=== PATIENT | female | born 1960 | race Caucasian/White ===

== ENCOUNTER 2019-08-25 20:25 | Emergency (ER) | payer MEDICARE, MEDICAID ==
[~2019-08-25] VITALS: Ht 162.6 cm; Wt 59.0 kg
[2019-08-25 21:44] LABS: Basophils # (auto) 0.2 uL; Basophils % (auto) 1.4 % (0.0-2.0); Eosinophils # (auto) 0.2 uL; Eosinophils % (auto) 1.1 % (0.0-7.0); Hematocrit 44.3 % (36.0-46.0); Hemoglobin 14.4 g/dL (12.2-16.2); Lymphocytes # (auto) 1.5 uL; Lymphocytes % (auto) 10.6 % (10.0-50.0); Mean Corpuscular Hemoglobin 32.1 pg (28.0-32.0); Mean Corpuscular Hgb Conc. 32.6 g/dL (32.0-36.0); Mean Corpuscular Volume 98.5 fL (80.0-100.0); Monocytes # (auto) 1.3 uL; Monocytes % (auto) 9.5 % (0.0-12.0); Neutrophils # (auto) 10.7 uL; Neutrophils % (auto) 77.4 % (37.0-80.0); Platelet Count (auto) 283 10^3/uL (140-450); Red Cell Distribution Width 16.8 % (11.8-14.3); White Blood Cell 13.8 10^3/uL (4.4-10.8)
[2019-08-25 21:59] LABS: Albumin 2.7 g/dL (3.4-5.0); Anion Gap 8 (5-15); BUN/Creatinine Ratio 15.4; Blood Alcohol < 3.0 mg/dL (0-5); Blood Urea Nitrogen 14 mg/dL (7-18); Calcium 8.7 mg/dL (8.5-10.1); Carbon Dioxide 28 mmol/L (21-32); Chloride 107 mmol/L (98-107); GFR African American 81 mL/min; GFR Non-African American 67 mL/min; Glucose 108 mg/dL (74-106); Magnesium 2.6 mg/dL (1.6-2.6); Potassium 4.3 mmol/L (3.5-5.1); Sodium 143 mmol/L (136-145)
[2019-08-25 22:05] LABS: Alanine Aminotransferase 30 U/L (13-56); Alkaline Phosphatase 106 U/L (45-117); Aspartate Aminotransferase 69 U/L (15-37); Bilirubin, Total 0.2 mg/dL (0.2-1.0); Total Protein 6.8 g/dL (6.4-8.2)
[2019-08-25 22:30] LABS: Urine Amorphous Crystal MOD /hpf (None Seen); Urine Bacteria NONE SEEN /hpf (None Seen); Urine Blood 1+ /uL (Negative); Urine Hyaline Cast MANY /lpf (0 - 2); Urine Mucus FEW (None Seen); Urine Specific Gravity 1.017 (1.001-1.035); Urine WBC 6 /hpf (0 - 5)
[2019-08-25] MEDS ORDERED: LORazepam 2MG/ML-1ML VIAL ONE (22:35)
[2019-08-25] MEDS ORDERED: LORazepam 2MG/ML-1ML VIAL IV ONE (22:45)
[2019-08-25] MEDS ORDERED: MIDAZOLAM DRIP 50 mg/50mL 50 ML IV SCH (23:41)
[2019-08-25] MEDS ORDERED: SUCCINYLCHOLINE CHLORIDE 20 MG/ML 10ML VIAL IV ONE (23:45)
[2019-08-25] MEDS ORDERED: ETOMIDATE (2MG/ML) 20ML VIAL IV ONE (23:45)
[2019-08-25] MEDS ORDERED: MIDAZOLAM DRIP 50 mg/50mL 50 ML IV ONE (23:52)
[2019-08-26] MEDS ORDERED: cefTRIAXone 1GM/50ML D5W 50 ML IV ONE (00:30)
[2019-08-26] MEDS ORDERED: NOREPINEPHRINE 8 MG/250ML KIT 250 ML IV ONE (00:56)
[2019-08-26] MEDS ORDERED: NOREPINEPHRINE 8 MG/250ML KIT 250 ML IV SCH (01:00)
[2019-08-26 01:03] VITALS: BP 113/45
== END 2019-08-26 01:10 | disposition short-term general hospital (02) ==
LOC: EDBD 20:25 → ER 20:35
DX: S34.139A Unspecified injury to sacral spinal cord, initial encounter (principal); R41.82 Altered mental status, unspecified; F32.9 Major depressive disorder, single episode, unspecified; Z88.6 Allergy status to analgesic agent; X58.XXXA Exposure to other specified factors, initial encounter; Y93.89 Activity, other specified; Y92.89 Other specified places as the place of occurrence of the external cause; Y99.8 Other external cause status
CPT/HCPCS: 31500; 36415; 36600; 70450; 71045; 72125; 80053; 80320; 81001; 82805; 82962; 83605; 83735; 84484; 85025; 93005; 96365; 96375; 99285; J0330; J0696; J2060; J2250; J7030; 94002

== ENCOUNTER 2021-07-11 11:38 | Inpatient (IN) | payer MEDICARE, MEDICAID ==
[~2021-07-11] VITALS: Ht 165.1 cm; Wt 50.2 kg
[2021-07-11] MEDS ORDERED: LORazepam 2MG/ML-1ML VIAL IV ONE (12:15)
[2021-07-11 12:36] LABS: Basophils # (auto) 0 10 ^3/uL (0-0.2); Basophils % (auto) 0.5 % (0.0-2.0); Eosinophils # (auto) 0 10 ^3/uL (0-0.8); Hematocrit 40.7 % (36.0-46.0); Hemoglobin 13.1 g/dL (12.2-16.2); Lymphocytes # (auto) 1.5 10 ^3/uL (0.4-5.4); Mean Corpuscular Hgb Conc. 32.3 g/dL (32.0-36.0); Mean Corpuscular Volume 99.1 fL (80.0-100.0); Monocytes # (auto) 0.3 10 ^3/uL (0-1.3); Monocytes % (auto) 6.3 % (0.0-12.0); Neutrophils # (auto) 3.4 10 ^3/uL (1.6-8.6); Neutrophils % (auto) 64.2 % (37.0-80.0); Nucleated Red Blood Cells % 0.3 %; Red Cell Distribution Width 18.9 % (11.8-14.3); White Blood Cell 5.3 10^3/uL (4.4-10.8)
[2021-07-11 12:49] LABS: Magnesium 3.4 mg/dL (1.6-2.6)
[2021-07-11 12:54] LABS: BUN/Creatinine Ratio 33.1; Bilirubin, Total 0.2 mg/dL (0.2-1.0); Total Protein 6.9 g/dL (6.4-8.2)
[2021-07-11] MEDS ORDERED: D5W/SOD CHL 0.45% 1,000 ML IV SCH (15:45)
[2021-07-11] MEDS ORDERED: HYDROcodone-ACET 5/325MG TAB PO PRN (15:45)
[2021-07-11] MEDS ORDERED: NITROGLYCERIN 0.4 MG SL TAB SL PRN (15:45)
[2021-07-11] MEDS ORDERED: DOCUSATE SOD 100 MG CAP PO PRN (15:45)
[2021-07-11] MEDS ORDERED: VANCOMYCIN PER PHARMACY 1,000 MG IV SCH (16:00)
[2021-07-11] MEDS: HEPARIN SODIUM (PORCINE) 5000 UNITS/ML 1ML VIAL SC SCH (16:00)
[2021-07-11] MEDS ORDERED: SODIUM CHLORIDE 0.9% 1,200 ML IV ONE (16:00)
[2021-07-11] MEDS: NOREPINEPHRINE 8 MG/250ML KIT 250 ML IV SCH (16:08)
[2021-07-11] MEDS: ASCORBIC ACID 1,000 MG TAB PO SCH (16:25)
[2021-07-11] MEDS: CHOLECALCIFEROL (VITD3) 2,000 UNIT CAP/TAB PO SCH (16:26)
[2021-07-11] MEDS: ZINC SULFATE 220mg CAP or TAB PO SCH (16:26)
[2021-07-11] MEDS: DexAMETHasone SOD PHOS 10MG/1ML VIAL INJ IV SCH (16:27)
[2021-07-11] MEDS ORDERED: ALBUTEROL SULF HFA 90MCG INH 200DOSE IN PRN (16:30)
[2021-07-11] MEDS ORDERED: SODIUM CHLORIDE 0.9% 100 ML IV ONE (16:30)
[2021-07-11] MEDS ORDERED: VANCOMYCIN 750mg/250ml 250 ML IV ONE (17:00)
[2021-07-11] MEDS: ACCU-CHEK COMFORT CURVE STRIP VI SCH ×2 (17:00→22:17)
[2021-07-11] MEDS: InsuLIN REG 1unit/0.01ml Soln (100units/ml) SC SCH ×2 (17:00→22:19)
[2021-07-11 17:10] LABS: Urine Bacteria NONE SEEN /hpf (None Seen); Urine Blood TRACE /uL (Negative); Urine Hyaline Cast FEW /lpf (0 - 2); Urine Mucus FEW (None Seen); Urine WBC 5 /hpf (0 - 5)
[2021-07-11] MEDS ORDERED: DEXTROSE 50% SYRINGE 50 ML IV ONE (17:34)
[2021-07-11] MEDS: D5W/SOD CHLO 0.9% 1,000 ML IV SCH (17:59)
[2021-07-11] MEDS ORDERED: PIPERACILLIN-TAZOB 3.375GM 100 ML IV SCH (18:00)
[2021-07-11] MEDS: DEXTROSE (50%) 50ML SYRG IV PRN (18:02)
[2021-07-11] MEDS ORDERED: DEXTROSE (50%) 50ML SYRG IV ONE (18:15)
[2021-07-11 21:49] VITALS: BP 77/36
[2021-07-11] MEDS: BUDESONIDE (INHALATION) 0.5 MG/2 ML NEB NEB SCH (21:50)
[2021-07-11] MEDS: PIPERACILLIN-TAZOB 3.375GM 100 ML IV SCH (21:59)
[2021-07-11] MEDS ORDERED: BUDESONIDE (INHALATION) 180 MCG IH IN SCH (22:00)
[2021-07-12] MEDS: HEPARIN SODIUM (PORCINE) 5000 UNITS/ML 1ML VIAL SC SCH ×3 (01:21→18:46)
[2021-07-12] MEDS: D5W/SOD CHLO 0.9% 1,000 ML IV SCH ×2 (03:45→16:41)
[2021-07-12] MEDS: PIPERACILLIN-TAZOB 3.375GM 100 ML IV SCH ×4 (05:39→21:17)
[2021-07-12 07:18] LABS: Basophils # (auto) 0 10 ^3/uL (0-0.2); Basophils % (auto) 0.1 % (0.0-2.0); Eosinophils # (auto) 0 10 ^3/uL (0-0.8); Hematocrit 42.1 % (36.0-46.0); Hemoglobin 13.3 g/dL (12.2-16.2); Lymphocytes # (auto) 1.1 10 ^3/uL (0.4-5.4); Lymphocytes % (auto) 9.9 % (10.0-50.0); Mean Corpuscular Hemoglobin 31.5 pg (28.0-32.0); Mean Corpuscular Hgb Conc. 31.6 g/dL (32.0-36.0); Mean Corpuscular Volume 99.5 fL (80.0-100.0); Monocytes # (auto) 0.5 10 ^3/uL (0-1.3); Monocytes % (auto) 4.4 % (0.0-12.0); Neutrophils # (auto) 9.7 10 ^3/uL (1.6-8.6); Neutrophils % (auto) 85.6 % (37.0-80.0); Nucleated Red Blood Cells % 0.1 %; Red Blood Cells 4.23 10^6/uL (4.0-5.20); Red Cell Distribution Width 19.2 % (11.8-14.3); White Blood Cell 11.4 10^3/uL (4.4-10.8)
[2021-07-12 07:23] LABS: Calcium 7.3 mg/dL (8.5-10.1); Potassium 4.8 mmol/L (3.5-5.1)
[2021-07-12 07:27] LABS: BUN/Creatinine Ratio 29.1; Bilirubin, Total 0.2 mg/dL (0.2-1.0); Total Protein 5.9 g/dL (6.4-8.2)
[2021-07-12] MEDS: InsuLIN REG 1unit/0.01ml Soln (100units/ml) SC SCH ×4 (09:20→22:58)
[2021-07-12] MEDS: ACCU-CHEK COMFORT CURVE STRIP VI SCH ×4 (09:20→22:58)
[2021-07-12] MEDS: BUDESONIDE (INHALATION) 0.5 MG/2 ML NEB NEB SCH ×2 (10:00→19:24)
[2021-07-12] MEDS: ZINC SULFATE 220mg CAP or TAB PO SCH (10:00)
[2021-07-12] MEDS: CHOLECALCIFEROL (VITD3) 2,000 UNIT CAP/TAB PO SCH (10:00)
[2021-07-12] MEDS: ASCORBIC ACID 1,000 MG TAB PO SCH (10:00)
[2021-07-12] MEDS: DexAMETHasone SOD PHOS 10MG/1ML VIAL INJ IV SCH (11:47)
[2021-07-12] MEDS: VANCOMYCIN 750mg/250ml 250 ML IV SCH (13:22)
[2021-07-12] MEDS: NOREPINEPHRINE 8 MG/250ML KIT 250 ML IV SCH (14:50)
[2021-07-12] MEDS ORDERED: HALOPERIDOL LACTATE 5 MG/ML INJ VIAL IM ONE (16:45)
[2021-07-12] MEDS: SOD CHL 0.45% 1,000 ML IV SCH (17:54)
[2021-07-12] MEDS: ALBUTEROL SULF 2.5 MG/0.5ML(0.5%) NEB SOLN NEB PRN (19:24)
[2021-07-12] MEDS: DOPamine 1600MCG/ML D5W 250 ML IV SCH (19:40)
[2021-07-12] MEDS: QUEtiapine FUMARATE 25 MG TAB PO SCH (23:17)
[2021-07-12] MEDS: FAMOTIDINE (10MG/ML) 2ML VL IV SCH (23:17)
[2021-07-13] MEDS: PIPERACILLIN-TAZOB 3.375GM 100 ML IV SCH ×6 (03:36→23:20)
[2021-07-13] MEDS: BUDESONIDE (INHALATION) 0.5 MG/2 ML NEB NEB SCH ×2 (06:53→22:39)
[2021-07-13] MEDS: SOD CHL 0.45% 1,000 ML IV SCH ×2 (07:04→19:50)
[2021-07-13] MEDS: VANCOMYCIN 750mg/250ml 250 ML IV SCH ×2 (07:19→08:37)
[2021-07-13] MEDS: ACCU-CHEK COMFORT CURVE STRIP VI SCH ×4 (08:33→22:00)
[2021-07-13] MEDS: InsuLIN REG 1unit/0.01ml Soln (100units/ml) SC SCH ×4 (08:34→22:00)
[2021-07-13] MEDS: HEPARIN SODIUM (PORCINE) 5000 UNITS/ML 1ML VIAL SC SCH ×3 (08:53→17:22)
[2021-07-13 10:18] LABS: Calcium 7.8 mg/dL (8.5-10.1); Potassium 4.4 mmol/L (3.5-5.1)
[2021-07-13 10:23] LABS: Bilirubin, Total 0.3 mg/dL (0.2-1.0); Total Protein 6.1 g/dL (6.4-8.2)
[2021-07-13 10:31] LABS: Basophils # (auto) 0 10 ^3/uL (0-0.2); Basophils % (auto) 0.1 % (0.0-2.0); Eosinophils # (auto) 0 10 ^3/uL (0-0.8); Hematocrit 40.5 % (36.0-46.0); Hemoglobin 12.9 g/dL (12.2-16.2); Lymphocytes % (auto) 9.1 % (10.0-50.0); Mean Corpuscular Hgb Conc. 31.9 g/dL (32.0-36.0); Mean Corpuscular Volume 97.1 fL (80.0-100.0); Monocytes # (auto) 0.6 10 ^3/uL (0-1.3); Monocytes % (auto) 5.1 % (0.0-12.0); Neutrophils # (auto) 9.9 10 ^3/uL (1.6-8.6); Neutrophils % (auto) 85.7 % (37.0-80.0); Red Blood Cells 4.17 10^6/uL (4.0-5.20); Red Cell Distribution Width 18.6 % (11.8-14.3); White Blood Cell 11.5 10^3/uL (4.4-10.8)
[2021-07-13] MEDS: FAMOTIDINE (10MG/ML) 2ML VL IV SCH ×2 (10:34→22:00)
[2021-07-13] MEDS: ASCORBIC ACID 1,000 MG TAB PO SCH (10:34)
[2021-07-13] MEDS: CHOLECALCIFEROL (VITD3) 2,000 UNIT CAP/TAB PO SCH (10:34)
[2021-07-13] MEDS: QUEtiapine FUMARATE 25 MG TAB PO SCH ×2 (10:34→22:00)
[2021-07-13] MEDS: ZINC SULFATE 220mg CAP or TAB PO SCH (10:34)
[2021-07-13] MEDS: DexAMETHasone SOD PHOS 10MG/1ML VIAL INJ IV SCH (10:35)
[2021-07-13] MEDS: NOREPINEPHRINE 8 MG/250ML KIT 250 ML IV SCH (15:45)
[2021-07-13] MEDS: DOBUTamine 1000MCG/ML 250 ML IV SCH (19:53)
[2021-07-13] MEDS: ALBUTEROL SULF 2.5 MG/0.5ML(0.5%) NEB SOLN NEB PRN (22:39)
[2021-07-14] MEDS: DOPamine 1600MCG/ML D5W 250 ML IV SCH ×2 (00:19→19:17)
[2021-07-14] MEDS ORDERED: HEPARIN SODIUM (PORCINE) 5000 UNITS/ML 1ML VIAL ONE (00:30)
[2021-07-14] MEDS: VANCOMYCIN 750mg/250ml 250 ML IV SCH (00:30)
[2021-07-14] MEDS: HEPARIN SODIUM (PORCINE) 5000 UNITS/ML 1ML VIAL SC SCH ×3 (00:35→16:00)
[2021-07-14] MEDS: PIPERACILLIN-TAZOB 3.375GM 100 ML IV SCH ×2 (05:12→09:30)
[2021-07-14] MEDS: BUDESONIDE (INHALATION) 0.5 MG/2 ML NEB NEB SCH ×2 (06:19→18:52)
[2021-07-14] MEDS: ALBUTEROL SULF 2.5 MG/0.5ML(0.5%) NEB SOLN NEB PRN ×2 (06:19→18:52)
[2021-07-14] MEDS: InsuLIN REG 1unit/0.01ml Soln (100units/ml) SC SCH ×3 (06:55→22:35)
[2021-07-14] MEDS: ACCU-CHEK COMFORT CURVE STRIP VI SCH ×4 (06:55→22:35)
[2021-07-14 07:34] LABS: Basophils # (auto) 0 10 ^3/uL (0-0.2); Basophils % (auto) 0.2 % (0.0-2.0); Eosinophils # (auto) 0 10 ^3/uL (0-0.8); Hematocrit 36.8 % (36.0-46.0); Hemoglobin 12.5 g/dL (12.2-16.2); Lymphocytes # (auto) 0.5 10 ^3/uL (0.4-5.4); Lymphocytes % (auto) 5.8 % (10.0-50.0); Mean Corpuscular Hemoglobin 32.6 pg (28.0-32.0); Mean Corpuscular Hgb Conc. 33.9 g/dL (32.0-36.0); Mean Corpuscular Volume 96.1 fL (80.0-100.0); Monocytes # (auto) 0.3 10 ^3/uL (0-1.3); Monocytes % (auto) 3.8 % (0.0-12.0); Neutrophils # (auto) 7.5 10 ^3/uL (1.6-8.6); Neutrophils % (auto) 90.2 % (37.0-80.0); Nucleated Red Blood Cells % 0.1 %; Red Blood Cells 3.83 10^6/uL (4.0-5.20); Red Cell Distribution Width 17.7 % (11.8-14.3); White Blood Cell 8.3 10^3/uL (4.4-10.8)
[2021-07-14 07:47] LABS: Potassium 3.4 mmol/L (3.5-5.1)
[2021-07-14 07:59] LABS: Albumin 1.9 g/dL (3.4-5.0); Bilirubin, Total 0.3 mg/dL (0.2-1.0); Calcium 7.9 mg/dL (8.5-10.1); Total Protein 6.7 g/dL (6.4-8.2)
[2021-07-14] MEDS: SOD CHL 0.45% 1,000 ML IV SCH (09:04)
[2021-07-14] MEDS: ZINC SULFATE 220mg CAP or TAB PO SCH (09:30)
[2021-07-14] MEDS: DexAMETHasone SOD PHOS 10MG/1ML VIAL INJ IV SCH (09:30)
[2021-07-14] MEDS: FAMOTIDINE (10MG/ML) 2ML VL IV SCH ×2 (09:30→10:20)
[2021-07-14] MEDS: ASCORBIC ACID 1,000 MG TAB PO SCH (09:30)
[2021-07-14] MEDS: CHOLECALCIFEROL (VITD3) 2,000 UNIT CAP/TAB PO SCH (09:30)
[2021-07-14] MEDS: QUEtiapine FUMARATE 25 MG TAB PO SCH ×2 (09:30→22:30)
[2021-07-14] MEDS ORDERED: LEVO175T66 PO (11:45)
[2021-07-14] MEDS ORDERED: RISP0.5T45 PO (11:45)
[2021-07-14] MEDS ORDERED: IBUP600T27 PO (11:45)
[2021-07-14] MEDS ORDERED: DONE1TAB88 PO (11:45)
[2021-07-14] MEDS ORDERED: ATOR40TA52 PO (11:45)
[2021-07-14] MEDS ORDERED: QUET50TA27 PO (11:45)
[2021-07-14] MEDS ORDERED: FLUC150T38 PO (11:45)
[2021-07-14] MEDS ORDERED: TRAM50TA2 PO (11:45)
[2021-07-14] MEDS ORDERED: VANCOMYCIN 750mg/250ml 250 ML IV SCH (12:00)
[2021-07-14] MEDS ORDERED: VANCOMYCIN 500 MG in D5W 5% 100 ML IV SCH (12:00)
[2021-07-14 14:01] VITALS: BP 98/68
[2021-07-14] MEDS ORDERED: POTASSIUM EFFERVESENT TAB 25 MEQ PO ONE (14:15)
[2021-07-14] MEDS: MORPHINE SULFATE INJECTION 2 MG/ML SYRG IV PRN (14:36)
[2021-07-14] MEDS: ONDANSETRON HCL 4 MG/2 ML VIAL IV PRN (14:39)
[2021-07-14] MEDS: NOREPINEPHRINE 8 MG/250ML KIT 250 ML IV SCH (15:45)
[2021-07-14] MEDS: DOBUTamine 1000MCG/ML 250 ML IV SCH (15:50)
[2021-07-14] MEDS ORDERED: POTASSIUM EFFERVESENT TAB 25 MEQ GT ONE (17:00)
[2021-07-14] MEDS: FREE WATER GT SCH ×2 (18:00→22:00)
[2021-07-14] MEDS: ENSURE CLEAR Mixed Berry 8oz Carton GT SCH (22:00)
[2021-07-15] MEDS: MORPHINE SULFATE INJECTION 2 MG/ML SYRG IV PRN ×2 (00:15→17:51)
[2021-07-15] MEDS: FREE WATER GT SCH ×6 (02:00→23:31)
[2021-07-15] MEDS: ENSURE CLEAR Mixed Berry 8oz Carton GT SCH (06:00)
[2021-07-15] MEDS: BUDESONIDE (INHALATION) 0.5 MG/2 ML NEB NEB SCH ×2 (06:39→18:41)
[2021-07-15] MEDS: ALBUTEROL SULF 2.5 MG/0.5ML(0.5%) NEB SOLN NEB PRN ×2 (06:39→18:41)
[2021-07-15 06:59] LABS: Basophils # (auto) 0 10 ^3/uL (0-0.2); Eosinophils # (auto) 0 10 ^3/uL (0-0.8); Hematocrit 38.7 % (36.0-46.0); Hemoglobin 12.8 g/dL (12.2-16.2); Lymphocytes # (auto) 0.6 10 ^3/uL (0.4-5.4); Lymphocytes % (auto) 9.7 % (10.0-50.0); Mean Corpuscular Hemoglobin 31.7 pg (28.0-32.0); Mean Corpuscular Hgb Conc. 33.1 g/dL (32.0-36.0); Mean Corpuscular Volume 95.7 fL (80.0-100.0); Monocytes # (auto) 0.2 10 ^3/uL (0-1.3); Neutrophils % (auto) 86.3 % (37.0-80.0); Nucleated Red Blood Cells % 0.1 %; Red Blood Cells 4.04 10^6/uL (4.0-5.20); Red Cell Distribution Width 18.3 % (11.8-14.3); White Blood Cell 5.8 10^3/uL (4.4-10.8)
[2021-07-15 07:12] LABS: Potassium 4.3 mmol/L (3.5-5.1)
[2021-07-15 07:20] LABS: Albumin 1.9 g/dL (3.4-5.0); Bilirubin, Total 0.3 mg/dL (0.2-1.0); Calcium 7.7 mg/dL (8.5-10.1); Total Protein 6.1 g/dL (6.4-8.2)
[2021-07-15] MEDS: ACCU-CHEK COMFORT CURVE STRIP VI SCH ×4 (07:54→23:15)
[2021-07-15] MEDS: HEPARIN SODIUM (PORCINE) 5000 UNITS/ML 1ML VIAL SC SCH ×2 (08:00)
[2021-07-15] MEDS: DEXTROSE (50%) 50ML SYRG IV PRN ×2 (08:08→13:48)
[2021-07-15] MEDS: DexAMETHasone SOD PHOS 10MG/1ML VIAL INJ IV SCH (11:07)
[2021-07-15] MEDS: FAMOTIDINE (10MG/ML) 2ML VL IV SCH (11:08)
[2021-07-15] MEDS: QUEtiapine FUMARATE 25 MG TAB PO SCH ×2 (11:08→23:31)
[2021-07-15] MEDS: ZINC SULFATE 220mg CAP or TAB PO SCH (11:08)
[2021-07-15] MEDS: CHOLECALCIFEROL (VITD3) 2,000 UNIT CAP/TAB PO SCH (11:08)
[2021-07-15] MEDS: ASCORBIC ACID 1,000 MG TAB PO SCH (11:08)
[2021-07-15] MEDS: DOBUTamine 1000MCG/ML 250 ML IV SCH (12:05)
[2021-07-15] MEDS: NOREPINEPHRINE 8 MG/250ML KIT 250 ML IV SCH (14:02)
[2021-07-15] MEDS ORDERED: REMDESIVIR PER PHARMACY 0 ML IV SCH ×2 (15:15)
[2021-07-15] MEDS ORDERED: REMDESIVIR 200 MG in NS 210ml LOADING DOSE ADULT IV ONE (16:30)
[2021-07-15] MEDS: ALBUMIN 25% 50 ML IV SCH ×2 (17:05→23:32)
[2021-07-15] MEDS: ACETAMINOPHEN 325 MG TAB PO PRN (17:52)
[2021-07-15] MEDS: DOPamine 1600MCG/ML D5W 250 ML IV SCH (19:15)
[2021-07-15] MEDS: InsuLIN REG 1unit/0.01ml Soln (100units/ml) SC SCH (22:00)
[2021-07-16] MEDS: FREE WATER GT SCH ×6 (02:00→21:13)
[2021-07-16] MEDS: MORPHINE SULFATE INJECTION 2 MG/ML SYRG IV PRN (02:40)
[2021-07-16] MEDS: ONDANSETRON HCL 4 MG/2 ML VIAL IV PRN (02:41)
[2021-07-16] MEDS: ACCU-CHEK COMFORT CURVE STRIP VI SCH ×4 (07:08→22:40)
[2021-07-16] MEDS: BUDESONIDE (INHALATION) 0.5 MG/2 ML NEB NEB SCH ×2 (07:09→18:49)
[2021-07-16] MEDS: ALBUMIN 25% 50 ML IV SCH (07:10)
[2021-07-16] MEDS: DOBUTamine 1000MCG/ML 250 ML IV SCH ×2 (10:00→23:20)
[2021-07-16] MEDS: FAMOTIDINE (10MG/ML) 2ML VL IV SCH (10:17)
[2021-07-16] MEDS: ZINC SULFATE 220mg CAP or TAB PO SCH (10:17)
[2021-07-16] MEDS: CHOLECALCIFEROL (VITD3) 2,000 UNIT CAP/TAB PO SCH (10:17)
[2021-07-16] MEDS: ASCORBIC ACID 1,000 MG TAB PO SCH (10:17)
[2021-07-16] MEDS: DexAMETHasone SOD PHOS 10MG/1ML VIAL INJ IV SCH (10:17)
[2021-07-16] MEDS: QUEtiapine FUMARATE 25 MG TAB PO SCH ×2 (10:17→21:13)
[2021-07-16] MEDS: NOREPINEPHRINE 8 MG/250ML KIT 250 ML IV SCH (10:39)
[2021-07-16] MEDS: DEXTROSE (50%) 50ML SYRG IV PRN (13:07)
[2021-07-16 13:29] LABS: Calcium 7.9 mg/dL (8.5-10.1); Potassium 4.6 mmol/L (3.5-5.1)
[2021-07-16 13:32] LABS: Basophils # (auto) 0 10 ^3/uL (0-0.2); Eosinophils # (auto) 0 10 ^3/uL (0-0.8); Hematocrit 40.4 % (36.0-46.0); Hemoglobin 13.2 g/dL (12.2-16.2); Lymphocytes # (auto) 0.2 10 ^3/uL (0.4-5.4); Lymphocytes % (auto) 2.5 % (10.0-50.0); Mean Corpuscular Hemoglobin 31.7 pg (28.0-32.0); Mean Corpuscular Hgb Conc. 32.8 g/dL (32.0-36.0); Mean Corpuscular Volume 96.6 fL (80.0-100.0); Monocytes # (auto) 0.7 10 ^3/uL (0-1.3); Monocytes % (auto) 6.6 % (0.0-12.0); Neutrophils % (auto) 90.9 % (37.0-80.0); Red Blood Cells 4.18 10^6/uL (4.0-5.20); Red Cell Distribution Width 18.3 % (11.8-14.3); White Blood Cell 9.9 10^3/uL (4.4-10.8)
[2021-07-16 13:33] LABS: BUN/Creatinine Ratio 21.7; Bilirubin, Total 0.3 mg/dL (0.2-1.0); Total Protein 6.1 g/dL (6.4-8.2)
[2021-07-16] MEDS: REMDESIVIR 100mg 100 MG in SODIUM CHL 0.9% 230 ML IV SCH (15:00)
[2021-07-16 18:09] VITALS: BP 107/51
[2021-07-16] MEDS: ALBUTEROL SULF 2.5 MG/0.5ML(0.5%) NEB SOLN NEB PRN (18:49)
[2021-07-16] MEDS: DOPamine 1600MCG/ML D5W 250 ML IV SCH (20:04)
[2021-07-16] MEDS: LORazepam 0.5 MG TAB PO PRN (21:14)
[2021-07-16] MEDS: InsuLIN REG 1unit/0.01ml Soln (100units/ml) SC SCH (22:40)
[2021-07-17] MEDS: FREE WATER GT SCH ×6 (00:36→22:20)
[2021-07-17] MEDS ORDERED: NOREPINEPHRINE 8 MG/250ML KIT 250 ML IV ONE (01:16)
[2021-07-17] MEDS: ACCU-CHEK COMFORT CURVE STRIP VI SCH ×4 (05:59→22:19)
[2021-07-17] MEDS: ALBUTEROL SULF 2.5 MG/0.5ML(0.5%) NEB SOLN NEB PRN ×2 (06:54→18:36)
[2021-07-17] MEDS: BUDESONIDE (INHALATION) 0.5 MG/2 ML NEB NEB SCH ×2 (06:55→18:36)
[2021-07-17] MEDS: FAMOTIDINE (10MG/ML) 2ML VL IV SCH (10:00)
[2021-07-17] MEDS: CHOLECALCIFEROL (VITD3) 2,000 UNIT CAP/TAB PO SCH (10:00)
[2021-07-17] MEDS: ZINC SULFATE 220mg CAP or TAB PO SCH (10:00)
[2021-07-17] MEDS: QUEtiapine FUMARATE 25 MG TAB PO SCH ×2 (10:00→22:24)
[2021-07-17] MEDS: ASCORBIC ACID 1,000 MG TAB PO SCH (10:00)
[2021-07-17] MEDS: DexAMETHasone SOD PHOS 10MG/1ML VIAL INJ IV SCH (10:00)
[2021-07-17] MEDS: ACETAMINOPHEN 325 MG TAB PO PRN (11:16)
[2021-07-17 11:43] LABS: Albumin 1.8 g/dL (3.4-5.0); Potassium 3.7 mmol/L (3.5-5.1)
[2021-07-17 11:47] LABS: BUN/Creatinine Ratio 33.3; Bilirubin, Total 0.2 mg/dL (0.2-1.0); Lactic Acid w/Reflex 2.5 mmol/L (0.4-2.0)
[2021-07-17 13:11] LABS: Basophils # (auto) 0 10 ^3/uL (0-0.2); Basophils % (auto) 0.2 % (0.0-2.0); Eosinophils # (auto) 0 10 ^3/uL (0-0.8); Hematocrit 38.2 % (36.0-46.0); Hemoglobin 12.2 g/dL (12.2-16.2); Lymphocytes # (auto) 0.5 10 ^3/uL (0.4-5.4); Lymphocytes % (auto) 6.6 % (10.0-50.0); Mean Corpuscular Hemoglobin 30.6 pg (28.0-32.0); Mean Corpuscular Hgb Conc. 31.8 g/dL (32.0-36.0); Mean Corpuscular Volume 96.3 fL (80.0-100.0); Monocytes # (auto) 0.3 10 ^3/uL (0-1.3); Monocytes % (auto) 3.1 % (0.0-12.0); Neutrophils # (auto) 7.5 10 ^3/uL (1.6-8.6); Neutrophils % (auto) 90.1 % (37.0-80.0); Red Blood Cells 3.97 10^6/uL (4.0-5.20); White Blood Cell 8.3 10^3/uL (4.4-10.8)
[2021-07-17 13:28] LABS: INR 1.14 (0.9-1.15)
[2021-07-17] MEDS: REMDESIVIR 100mg 100 MG in SODIUM CHL 0.9% 230 ML IV SCH (15:15)
[2021-07-17] MEDS: NOREPINEPHRINE 8 MG/250ML KIT 250 ML IV SCH (15:45)
[2021-07-17] MEDS: LORazepam 0.5 MG TAB PO PRN (17:52)
[2021-07-17] MEDS ORDERED: LIDOCAINE 1% (LOCAL ANESTH.) PF 5ml SDV ID ONE (18:00)
[2021-07-17] MEDS: DOPamine 1600MCG/ML D5W 250 ML IV SCH (19:15)
[2021-07-17] MEDS: InsuLIN REG 1unit/0.01ml Soln (100units/ml) SC SCH (22:00)
[2021-07-17] MEDS: SODIUM CHLOR 0.9% PF (SALINE LOCK) 10ML VIAL/SYR IV SCH (22:24)
[2021-07-18] MEDS: DOBUTamine 1000MCG/ML 250 ML IV SCH ×2 (01:47→21:45)
[2021-07-18] MEDS: FREE WATER GT SCH ×3 (02:15→10:00)
[2021-07-18] MEDS: MORPHINE SULFATE INJECTION 2 MG/ML SYRG IV PRN ×2 (03:14→10:00)
[2021-07-18] MEDS ORDERED: ALBUTEROL SULF 2.5 MG/0.5ML(0.5%) NEB SOLN ONE (06:02)
[2021-07-18] MEDS ORDERED: BUDESONIDE (INHALATION) 0.5 MG/2 ML NEB ONE (06:02)
[2021-07-18] MEDS: BUDESONIDE (INHALATION) 0.5 MG/2 ML NEB NEB SCH ×2 (06:04→18:53)
[2021-07-18] MEDS: ALBUTEROL SULF 2.5 MG/0.5ML(0.5%) NEB SOLN NEB PRN ×2 (06:05→18:53)
[2021-07-18 06:22] LABS: Albumin 1.6 g/dL (3.4-5.0); BUN/Creatinine Ratio 45.7; Calcium 7.4 mg/dL (8.5-10.1); Potassium 3.8 mmol/L (3.5-5.1)
[2021-07-18 06:28] LABS: Bilirubin, Total 0.2 mg/dL (0.2-1.0)
[2021-07-18] MEDS: ACCU-CHEK COMFORT CURVE STRIP VI SCH ×4 (07:20→22:47)
[2021-07-18] MEDS: QUEtiapine FUMARATE 25 MG TAB PO SCH (10:00)
[2021-07-18] MEDS: ONDANSETRON HCL 4 MG/2 ML VIAL IV PRN (10:00)
[2021-07-18] MEDS: ASCORBIC ACID 1,000 MG TAB PO SCH (10:00)
[2021-07-18] MEDS: FAMOTIDINE (10MG/ML) 2ML VL IV SCH (10:00)
[2021-07-18] MEDS: DexAMETHasone SOD PHOS 10MG/1ML VIAL INJ IV SCH (10:00)
[2021-07-18] MEDS: SODIUM CHLOR 0.9% PF (SALINE LOCK) 10ML VIAL/SYR IV SCH ×2 (10:00→22:47)
[2021-07-18] MEDS: ZINC SULFATE 220mg CAP or TAB PO SCH (10:00)
[2021-07-18] MEDS: CHOLECALCIFEROL (VITD3) 2,000 UNIT CAP/TAB PO SCH (10:00)
[2021-07-18] MEDS ORDERED: LACTULOSE 20Gm/30ML SOLN PO ONE (13:30)
[2021-07-18] MEDS: METOCLOPRAMIDE HCL 5MG/ml INJ 2ml VIAL IV SCH ×2 (14:00→22:00)
[2021-07-18] MEDS: D5W 5% 1,000 ML IV SCH ×2 (14:55→19:04)
[2021-07-18] MEDS: REMDESIVIR 100mg 100 MG in SODIUM CHL 0.9% 230 ML IV SCH (15:00)
[2021-07-18] MEDS: NOREPINEPHRINE 8 MG/250ML KIT 250 ML IV SCH ×2 (15:45→19:43)
[2021-07-18] MEDS: DOPamine 1600MCG/ML D5W 250 ML IV SCH (19:15)
[2021-07-18] MEDS ORDERED: NOREPINEPHRINE 8 MG/250ML KIT 250 ML IV ONE (19:33)
[2021-07-18] MEDS: InsuLIN REG 1unit/0.01ml Soln (100units/ml) SC SCH (22:00)
[2021-07-18] MEDS: LORazepam 0.5 MG TAB PO PRN (23:16)
[2021-07-19] MEDS ORDERED: ALBUTEROL SULF HFA 90MCG INH 200DOSE IN PRN (05:30)
[2021-07-19] MEDS: ACCU-CHEK COMFORT CURVE STRIP VI SCH ×5 (07:45→22:33)
[2021-07-19 08:59] LABS: Albumin 1.6 g/dL (3.4-5.0)
[2021-07-19 09:02] LABS: BUN/Creatinine Ratio 39.2; Bilirubin, Total 0.3 mg/dL (0.2-1.0); Total Protein 5.7 g/dL (6.4-8.2)
[2021-07-19] MEDS: METOCLOPRAMIDE HCL 5MG/ml INJ 2ml VIAL IV SCH ×3 (09:07→22:00)
[2021-07-19] MEDS: LACTULOSE 20Gm/30ML SOLN PO SCH (10:00)
[2021-07-19] MEDS: CHOLECALCIFEROL (VITD3) 2,000 UNIT CAP/TAB PO SCH (10:00)
[2021-07-19] MEDS: SODIUM CHLOR 0.9% PF (SALINE LOCK) 10ML VIAL/SYR IV SCH ×2 (10:00→22:31)
[2021-07-19] MEDS: ASCORBIC ACID 1,000 MG TAB PO SCH (10:00)
[2021-07-19] MEDS: DexAMETHasone SOD PHOS 10MG/1ML VIAL INJ IV SCH (10:00)
[2021-07-19] MEDS ORDERED: BUDESONIDE (INHALATION) 180 MCG IH IN SCH (10:00)
[2021-07-19] MEDS: ZINC SULFATE 220mg CAP or TAB PO SCH (10:00)
[2021-07-19] MEDS: FAMOTIDINE (10MG/ML) 2ML VL IV SCH (10:00)
[2021-07-19] MEDS: Jevity 1.2 Cal/Fiber 1 Liter GT SCH (10:04)
[2021-07-19 14:07] VITALS: BP 100/55
[2021-07-19] MEDS: REMDESIVIR 100mg 100 MG in SODIUM CHL 0.9% 230 ML IV SCH (15:02)
[2021-07-19] MEDS: MORPHINE SULFATE INJECTION 2 MG/ML SYRG IV PRN (17:51)
[2021-07-19] MEDS: ONDANSETRON HCL 4 MG/2 ML VIAL IV PRN (17:51)
[2021-07-19] MEDS: DOBUTamine 1000MCG/ML 250 ML IV SCH (18:10)
[2021-07-19] MEDS: BUDESONIDE (INHALATION) 0.5 MG/2 ML NEB NEB SCH (18:45)
[2021-07-19] MEDS: ALBUTEROL SULF 2.5 MG/0.5ML(0.5%) NEB SOLN NEB PRN (18:45)
[2021-07-19] MEDS: D5W 5% 1,000 ML IV SCH (18:55)
[2021-07-19] MEDS: DOPamine 1600MCG/ML D5W 250 ML IV SCH (20:32)
[2021-07-19] MEDS: InsuLIN REG 1unit/0.01ml Soln (100units/ml) SC SCH (22:00)
[2021-07-20] MEDS: MORPHINE SULFATE INJECTION 2 MG/ML SYRG IV PRN ×4 (02:36→22:00)
[2021-07-20] MEDS: ALBUTEROL SULF 2.5 MG/0.5ML(0.5%) NEB SOLN NEB PRN ×2 (06:20→18:10)
[2021-07-20] MEDS: BUDESONIDE (INHALATION) 0.5 MG/2 ML NEB NEB SCH ×2 (06:20→18:10)
[2021-07-20] MEDS: METOCLOPRAMIDE HCL 5MG/ml INJ 2ml VIAL IV SCH ×3 (06:44→22:20)
[2021-07-20] MEDS: ACCU-CHEK COMFORT CURVE STRIP VI SCH ×4 (06:45→22:20)
[2021-07-20] MEDS: DOPamine 1600MCG/ML D5W 250 ML IV SCH (07:15)
[2021-07-20] MEDS: ASCORBIC ACID 1,000 MG TAB PO SCH (10:18)
[2021-07-20] MEDS: LACTULOSE 20Gm/30ML SOLN PO SCH (10:19)
[2021-07-20] MEDS: CHOLECALCIFEROL (VITD3) 2,000 UNIT CAP/TAB PO SCH (10:19)
[2021-07-20] MEDS: DexAMETHasone SOD PHOS 10MG/1ML VIAL INJ IV SCH (10:19)
[2021-07-20] MEDS: FAMOTIDINE (10MG/ML) 2ML VL IV SCH (10:19)
[2021-07-20] MEDS: ZINC SULFATE 220mg CAP or TAB PO SCH (10:19)
[2021-07-20] MEDS: SODIUM CHLOR 0.9% PF (SALINE LOCK) 10ML VIAL/SYR IV SCH ×2 (10:20→22:20)
[2021-07-20] MEDS: DOBUTamine 1000MCG/ML 250 ML IV SCH (14:35)
[2021-07-20] MEDS: D5W 5% 1,000 ML IV SCH (17:08)
[2021-07-20] MEDS: NOREPINEPHRINE 8 MG/250ML KIT 250 ML IV SCH (17:13)
[2021-07-20] MEDS: InsuLIN REG 1unit/0.01ml Soln (100units/ml) SC SCH (22:50)
[2021-07-21] MEDS: MORPHINE SULFATE INJECTION 2 MG/ML SYRG IV PRN ×3 (04:45→23:48)
[2021-07-21] MEDS: METOCLOPRAMIDE HCL 5MG/ml INJ 2ml VIAL IV SCH ×3 (06:20→22:55)
[2021-07-21] MEDS: ACCU-CHEK COMFORT CURVE STRIP VI SCH ×4 (06:22→22:52)
[2021-07-21] MEDS: BUDESONIDE (INHALATION) 0.5 MG/2 ML NEB NEB SCH ×2 (09:56→22:50)
[2021-07-21] MEDS: ALBUTEROL SULF 2.5 MG/0.5ML(0.5%) NEB SOLN NEB PRN (09:56)
[2021-07-21] MEDS: FAMOTIDINE (10MG/ML) 2ML VL IV SCH (10:30)
[2021-07-21] MEDS: SODIUM CHLOR 0.9% PF (SALINE LOCK) 10ML VIAL/SYR IV SCH ×2 (10:30→22:54)
[2021-07-21] MEDS: DexAMETHasone SOD PHOS 10MG/1ML VIAL INJ IV SCH (10:30)
[2021-07-21] MEDS: ASCORBIC ACID 1,000 MG TAB PO SCH (10:30)
[2021-07-21] MEDS: ZINC SULFATE 220mg CAP or TAB PO SCH (10:30)
[2021-07-21] MEDS: CHOLECALCIFEROL (VITD3) 2,000 UNIT CAP/TAB PO SCH (10:30)
[2021-07-21] MEDS: Jevity 1.2 Cal/Fiber 1 Liter GT SCH (11:58)
[2021-07-21 14:46] LABS: Albumin 1.5 g/dL (3.4-5.0); Calcium 6.8 mg/dL (8.5-10.1); Potassium 3.8 mmol/L (3.5-5.1)
[2021-07-21 14:48] LABS: BUN/Creatinine Ratio 27.3
[2021-07-21 14:51] LABS: Bilirubin, Total 0.8 mg/dL (0.2-1.0); Total Protein 4.8 g/dL (6.4-8.2)
[2021-07-21] MEDS: DOBUTamine 1000MCG/ML 250 ML IV SCH (15:00)
[2021-07-21 16:54] LABS: Basophils # (auto) 0 10 ^3/uL (0-0.2); Basophils % (auto) 0.1 % (0.0-2.0); Eosinophils # (auto) 0 10 ^3/uL (0-0.8); Eosinophils % (auto) 0.1 % (0.0-7.0); Hematocrit 31.6 % (36.0-46.0); Hemoglobin 10.3 g/dL (12.2-16.2); Lymphocytes # (auto) 0.4 10 ^3/uL (0.4-5.4); Lymphocytes % (auto) 3.6 % (10.0-50.0); Mean Corpuscular Hgb Conc. 32.6 g/dL (32.0-36.0); Monocytes # (auto) 0.4 10 ^3/uL (0-1.3); Monocytes % (auto) 3.1 % (0.0-12.0); Neutrophils # (auto) 10.9 10 ^3/uL (1.6-8.6); Neutrophils % (auto) 93.1 % (37.0-80.0); Nucleated Red Blood Cells % 0.1 %; Red Blood Cells 3.33 10^6/uL (4.0-5.20); Red Cell Distribution Width 17.6 % (11.8-14.3); White Blood Cell 11.8 10^3/uL (4.4-10.8)
[2021-07-21] MEDS: NOREPINEPHRINE 8 MG/250ML KIT 250 ML IV SCH (19:15)
[2021-07-21] MEDS: DOPamine 1600MCG/ML D5W 250 ML IV SCH (19:15)
[2021-07-21] MEDS: D5W 5% 1,000 ML IV SCH (22:45)
[2021-07-21] MEDS: InsuLIN REG 1unit/0.01ml Soln (100units/ml) SC SCH (22:54)
[2021-07-21] MEDS: ONDANSETRON HCL 4 MG/2 ML VIAL IV PRN (23:49)
[2021-07-22] VITALS (16 sets, daily range): BP systolic 116–145; BP diastolic 45–57
[2021-07-22] MEDS: ONDANSETRON HCL 4 MG/2 ML VIAL IV PRN (05:30)
[2021-07-22] MEDS: MORPHINE SULFATE INJECTION 2 MG/ML SYRG IV PRN ×3 (05:30→15:59)
[2021-07-22] MEDS ORDERED: BUDESONIDE (INHALATION) 0.5 MG/2 ML NEB ONE (06:21)
[2021-07-22] MEDS: METOCLOPRAMIDE HCL 5MG/ml INJ 2ml VIAL IV SCH ×3 (06:31→22:16)
[2021-07-22] MEDS: ACETAMINOPHEN 325 MG TAB PO PRN (07:02)
[2021-07-22] MEDS ORDERED: ACETAMINOPHEN 650 mg PER 20.3 mL UD ONE (07:25)
[2021-07-22] MEDS: DOBUTamine 1000MCG/ML 250 ML IV SCH (07:25)
[2021-07-22] MEDS: ACCU-CHEK COMFORT CURVE STRIP VI SCH ×2 (07:37→11:45)
[2021-07-22] MEDS: BUDESONIDE (INHALATION) 0.5 MG/2 ML NEB NEB SCH ×2 (09:13→22:00)
[2021-07-22] MEDS: ALBUTEROL SULF 2.5 MG/0.5ML(0.5%) NEB SOLN NEB PRN (09:13)
[2021-07-22] MEDS: DexAMETHasone SOD PHOS 10MG/1ML VIAL INJ IV SCH (09:57)
[2021-07-22] MEDS: CHOLECALCIFEROL (VITD3) 2,000 UNIT CAP/TAB PO SCH (09:57)
[2021-07-22] MEDS: ASCORBIC ACID 1,000 MG TAB PO SCH (09:57)
[2021-07-22] MEDS: FAMOTIDINE (10MG/ML) 2ML VL IV SCH (09:57)
[2021-07-22] MEDS: ZINC SULFATE 220mg CAP or TAB PO SCH (09:57)
[2021-07-22] MEDS: SODIUM CHLOR 0.9% PF (SALINE LOCK) 10ML VIAL/SYR IV SCH ×2 (09:59→22:16)
[2021-07-22] MEDS: NOREPINEPHRINE 8 MG/250ML KIT 250 ML IV SCH ×2 (12:45→21:19)
[2021-07-22 13:37] LABS: Basophils # (auto) 0 10 ^3/uL (0-0.2); Basophils % (auto) 0.1 % (0.0-2.0); Eosinophils # (auto) 0 10 ^3/uL (0-0.8); Eosinophils % (auto) 0.2 % (0.0-7.0); Hematocrit 36.5 % (36.0-46.0); Hemoglobin 11.8 g/dL (12.2-16.2); Lymphocytes # (auto) 0.3 10 ^3/uL (0.4-5.4); Lymphocytes % (auto) 2.6 % (10.0-50.0); Mean Corpuscular Hemoglobin 30.9 pg (28.0-32.0); Mean Corpuscular Hgb Conc. 32.3 g/dL (32.0-36.0); Mean Corpuscular Volume 95.6 fL (80.0-100.0); Monocytes # (auto) 0.5 10 ^3/uL (0-1.3); Monocytes % (auto) 5.1 % (0.0-12.0); Red Blood Cells 3.82 10^6/uL (4.0-5.20); Red Cell Distribution Width 17.3 % (11.8-14.3); White Blood Cell 9.8 10^3/uL (4.4-10.8)
[2021-07-22 13:45] LABS: Albumin 1.7 g/dL (3.4-5.0); Calcium 7.3 mg/dL (8.5-10.1)
[2021-07-22] MEDS ORDERED: TPN PER PHARMACY 0 ML IV SCH ×2 (13:45)
[2021-07-22 13:49] LABS: BUN/Creatinine Ratio 27.9; Bilirubin, Total 0.3 mg/dL (0.2-1.0); Total Protein 5.2 g/dL (6.4-8.2)
[2021-07-22 14:47] LABS: Magnesium 2.2 mg/dL (1.6-2.6)
[2021-07-22 14:50] LABS: Pre Albumin 8.7 mg/dL (20.0-40.0)
[2021-07-22] MEDS ORDERED: DEXTROSE (50%) 50ML SYRG IV SCH (18:00)
[2021-07-22] MEDS ORDERED: DOPamine 1600MCG/ML D5W 250 ML IV ONE (19:18)
[2021-07-22] MEDS ORDERED: MORPHINE SULFATE INJECTION 2 MG/ML SYRG ONE (19:18)
[2021-07-22] MEDS ORDERED: NOREPINEPHRINE 8 MG/250ML KIT 250 ML IV ONE (19:19)
[2021-07-22] MEDS ORDERED: AMINO ACID INFUSION IN D10W 1,000 ML IV NR (20:00)
[2021-07-22] MEDS: D5W 5% 1,000 ML IV SCH (20:38)
[2021-07-22] MEDS: DOPamine 1600MCG/ML D5W 250 ML IV SCH (20:40)
[2021-07-23] VITALS (96 sets, daily range): BP systolic 68–182; BP diastolic 21–102
[2021-07-23] MEDS: MORPHINE SULFATE INJECTION 2 MG/ML SYRG IV PRN (00:11)
[2021-07-23] MEDS: ONDANSETRON HCL 4 MG/2 ML VIAL IV PRN ×2 (00:12→03:50)
[2021-07-23] MEDS: ACCU-CHEK COMFORT CURVE STRIP VI SCH ×4 (00:27→17:45)
[2021-07-23] MEDS: InsuLIN REG 1unit/0.01ml Soln (100units/ml) SC SCH ×4 (00:29→17:45)
[2021-07-23] MEDS: DOBUTamine 1000MCG/ML 250 ML IV SCH (03:50)
[2021-07-23] MEDS ORDERED: ROCURONIUM 10MG/ML 10ML VIAL IV ONE (04:22)
[2021-07-23] MEDS ORDERED: ETOMIDATE (2MG/ML) 20ML VIAL IV ONE ×2 (04:22→04:45)
[2021-07-23] MEDS ORDERED: SUCCINYLCHOLINE CHLORIDE 20 MG/ML 10ML VIAL IV ONE ×2 (04:22→04:45)
[2021-07-23] MEDS ORDERED: MIDAZOLAM DRIP 50 mg/50mL 50 ML IV ONE (04:32)
[2021-07-23] MEDS: MIDAZOLAM DRIP 50 mg/50mL 50 ML IV SCH ×2 (04:45→06:57)
[2021-07-23] MEDS: ALBUTEROL SULF 2.5 MG/0.5ML(0.5%) NEB SOLN NEB PRN ×2 (06:11→22:32)
[2021-07-23] MEDS: BUDESONIDE (INHALATION) 0.5 MG/2 ML NEB NEB SCH ×2 (06:11→22:32)
[2021-07-23] MEDS ORDERED: VASOPRESSIN 20 UNIT/ML ONE (06:27)
[2021-07-23] MEDS: VASOPRESSIN 50 UNITS in D5W 5% 247.5 ML IV SCH (06:51)
[2021-07-23] MEDS: METOCLOPRAMIDE HCL 5MG/ml INJ 2ml VIAL IV SCH ×3 (06:54→21:54)
[2021-07-23 10:00] LABS: Albumin 1.2 g/dL (3.4-5.0); Calcium 6.7 mg/dL (8.5-10.1); Magnesium 2.5 mg/dL (1.6-2.6); Potassium 3.4 mmol/L (3.5-5.1)
[2021-07-23 10:06] LABS: BUN/Creatinine Ratio 34.7; Bilirubin, Total 0.3 mg/dL (0.2-1.0); Phosphorus 1.5 mg/dL (2.5-4.90); Total Protein 4.1 g/dL (6.4-8.2)
[2021-07-23] MEDS: FAMOTIDINE (10MG/ML) 2ML VL IV SCH (10:26)
[2021-07-23] MEDS: DexAMETHasone SOD PHOS 10MG/1ML VIAL INJ IV SCH (10:26)
[2021-07-23] MEDS: CHOLECALCIFEROL (VITD3) 2,000 UNIT CAP/TAB PO SCH (10:27)
[2021-07-23] MEDS: ZINC SULFATE 220mg CAP or TAB PO SCH (10:27)
[2021-07-23] MEDS: ASCORBIC ACID 1,000 MG TAB PO SCH (10:27)
[2021-07-23] MEDS ORDERED: POTASSIUM PHOSPHATE 44 MEQ in D5W 5% 250 ML IV ONE (10:30)
[2021-07-23] MEDS: SODIUM CHLOR 0.9% PF (SALINE LOCK) 10ML VIAL/SYR IV SCH ×2 (10:30→21:54)
[2021-07-23] MEDS: PANTOPRAZOLE 40 MG/10 ML VIAL INJ IV SCH ×2 (12:00→21:54)
[2021-07-23] MEDS: NOREPINEPHRINE 8 MG/250ML KIT 250 ML IV SCH (16:55)
[2021-07-23] MEDS: DOPamine 1600MCG/ML D5W 250 ML IV SCH (19:30)
[2021-07-23] MEDS ORDERED: TPN PER PHARMACY IV NR ×9 (20:00)
[2021-07-24] VITALS (94 sets, daily range): BP systolic 100–156; BP diastolic 44–65
[2021-07-24] MEDS: ACCU-CHEK COMFORT CURVE STRIP VI SCH ×5 (00:11→23:40)
[2021-07-24] MEDS: InsuLIN REG 1unit/0.01ml Soln (100units/ml) SC SCH ×5 (00:12→23:40)
[2021-07-24] MEDS: DOBUTamine 1000MCG/ML 250 ML IV SCH ×2 (00:15→19:36)
[2021-07-24] MEDS: NOREPINEPHRINE 8 MG/250ML KIT 250 ML IV SCH ×2 (00:34→10:46)
[2021-07-24 04:53] LABS: Albumin 1.1 g/dL (3.4-5.0); Calcium 6.2 mg/dL (8.5-10.1); Potassium 3.8 mmol/L (3.5-5.1)
[2021-07-24 04:59] LABS: BUN/Creatinine Ratio 35.7; Bilirubin, Total 0.2 mg/dL (0.2-1.0); Magnesium 1.4 mg/dL (1.6-2.6); Phosphorus 1.8 mg/dL (2.5-4.90)
[2021-07-24 05:54] LABS: Basophils # (auto) 0 10 ^3/uL (0-0.2); Eosinophils # (auto) 0 10 ^3/uL (0-0.8); Hematocrit 26.2 % (36.0-46.0); Mean Corpuscular Volume 95.8 fL (80.0-100.0); Neutrophils # (auto) 12.9 10 ^3/uL (1.6-8.6); Nucleated Red Blood Cells % 0.1 %; White Blood Cell 14.1 10^3/uL (4.4-10.8)
[2021-07-24 05:56] LABS: Basophils % (auto) 0.2 % (0.0-2.0); Eosinophils % (auto) 0.1 % (0.0-7.0); Hemoglobin 8.5 g/dL (12.2-16.2); Lymphocytes # (auto) 0.6 10 ^3/uL (0.4-5.4); Lymphocytes % (auto) 4.4 % (10.0-50.0); Mean Corpuscular Hemoglobin 31.1 pg (28.0-32.0); Mean Corpuscular Hgb Conc. 32.5 g/dL (32.0-36.0); Monocytes # (auto) 0.6 10 ^3/uL (0-1.3); Monocytes % (auto) 4.2 % (0.0-12.0); Neutrophils % (auto) 91.1 % (37.0-80.0); Red Blood Cells 2.74 10^6/uL (4.0-5.20); Red Cell Distribution Width 17.1 % (11.8-14.3)
[2021-07-24] MEDS: METOCLOPRAMIDE HCL 5MG/ml INJ 2ml VIAL IV SCH ×3 (06:19→20:14)
[2021-07-24] MEDS ORDERED: SODIUM PHOSP 40 MEQ in D5W 5% 250 ML IV ONE (08:45)
[2021-07-24] MEDS: MAGNESIUM SULFATE 1GM/100ML 100 ML IV SCH ×2 (09:14→10:39)
[2021-07-24] MEDS: SODIUM CHLOR 0.9% PF (SALINE LOCK) 10ML VIAL/SYR IV SCH ×2 (10:00→19:59)
[2021-07-24] MEDS: MIDAZOLAM DRIP 50 mg/50mL 50 ML IV SCH ×2 (10:40→14:47)
[2021-07-24] MEDS: DexAMETHasone SOD PHOS 10MG/1ML VIAL INJ IV SCH (10:52)
[2021-07-24] MEDS: PANTOPRAZOLE 40 MG/10 ML VIAL INJ IV SCH ×2 (10:52→19:59)
[2021-07-24] MEDS: CHOLECALCIFEROL (VITD3) 2,000 UNIT CAP/TAB PO SCH (10:52)
[2021-07-24] MEDS: ASCORBIC ACID 1,000 MG TAB PO SCH (10:53)
[2021-07-24] MEDS: ZINC SULFATE 220mg CAP or TAB PO SCH (10:53)
[2021-07-24 12:20] LABS: Albumin 1.1 g/dL (3.4-5.0); Magnesium 2.8 mg/dL (1.6-2.6); Potassium 5.3 mmol/L (3.5-5.1)
[2021-07-24 12:24] LABS: Bilirubin, Total 0.3 mg/dL (0.2-1.0); Phosphorus 2.6 mg/dL (2.5-4.90); Total Protein 4.8 g/dL (6.4-8.2)
[2021-07-24] MEDS: BUDESONIDE (INHALATION) 0.5 MG/2 ML NEB NEB SCH ×2 (13:15→22:15)
[2021-07-24] MEDS: ALBUTEROL SULF 2.5 MG/0.5ML(0.5%) NEB SOLN NEB PRN ×2 (13:16→22:15)
[2021-07-24] MEDS ORDERED: VANCOMYCIN PER PHARMACY 0 MG IV SCH (15:30)
[2021-07-24] MEDS: VASOPRESSIN 50 UNITS in D5W 5% 247.5 ML IV SCH (16:52)
[2021-07-24] MEDS ORDERED: VANCOMYCIN 750mg/250ml 250 ML IV SCH (17:00)
[2021-07-24] MEDS ORDERED: PIPERACILLIN-TAZOB 3.375GM 100 ML IV SCH (18:00)
[2021-07-24] MEDS: VANCOMYCIN 750mg/250ml 250 ML IV SCH (18:12)
[2021-07-24] MEDS: DOPamine 1600MCG/ML D5W 250 ML IV SCH (19:15)
[2021-07-24] MEDS: PIPERACILLIN-TAZOB 3.375GM 100 ML IV SCH (20:14)
[2021-07-24] MEDS: TPN PER PHARMACY IV NR ×8 (20:44)
[2021-07-25] VITALS (96 sets, daily range): BP systolic 89–149; BP diastolic 41–64
[2021-07-25] MEDS: PIPERACILLIN-TAZOB 3.375GM 100 ML IV SCH ×4 (00:12→19:00)
[2021-07-25] MEDS: PROPOFOL 100 ML IV SCH (01:00)
[2021-07-25] MEDS: fentaNYL Drip 2500mCg/250mlNS 250 ML IV SCH (01:11)
[2021-07-25] MEDS: VANCOMYCIN 750mg/250ml 250 ML IV SCH ×3 (03:05→17:45)
[2021-07-25] MEDS: InsuLIN REG 1unit/0.01ml Soln (100units/ml) SC SCH ×3 (05:31→16:54)
[2021-07-25] MEDS: ACCU-CHEK COMFORT CURVE STRIP VI SCH ×3 (05:31→16:57)
[2021-07-25] MEDS: METOCLOPRAMIDE HCL 5MG/ml INJ 2ml VIAL IV SCH ×3 (06:29→22:00)
[2021-07-25] MEDS: VASOPRESSIN 50 UNITS in D5W 5% 247.5 ML IV SCH (06:30)
[2021-07-25 07:10] LABS: Basophils # (auto) 0 10 ^3/uL (0-0.2); Basophils % (auto) 0.3 % (0.0-2.0); Eosinophils # (auto) 0 10 ^3/uL (0-0.8); Hematocrit 25.7 % (36.0-46.0); Hemoglobin 8.4 g/dL (12.2-16.2); Lymphocytes # (auto) 0.6 10 ^3/uL (0.4-5.4); Lymphocytes % (auto) 4.2 % (10.0-50.0); Mean Corpuscular Hemoglobin 30.8 pg (28.0-32.0); Mean Corpuscular Hgb Conc. 32.6 g/dL (32.0-36.0); Mean Corpuscular Volume 94.3 fL (80.0-100.0); Monocytes # (auto) 0.7 10 ^3/uL (0-1.3); Monocytes % (auto) 4.6 % (0.0-12.0); Neutrophils # (auto) 13.2 10 ^3/uL (1.6-8.6); Neutrophils % (auto) 90.9 % (37.0-80.0); Red Blood Cells 2.73 10^6/uL (4.0-5.20); Red Cell Distribution Width 16.8 % (11.8-14.3); White Blood Cell 14.5 10^3/uL (4.4-10.8)
[2021-07-25 07:47] LABS: Potassium 3.8 mmol/L (3.5-5.1)
[2021-07-25 07:55] LABS: Albumin 1.2 g/dL (3.4-5.0); BUN/Creatinine Ratio 36.8; Bilirubin, Total 0.2 mg/dL (0.2-1.0); Calcium 6.9 mg/dL (8.5-10.1); Magnesium 2.8 mg/dL (1.6-2.6); Phosphorus 2.8 mg/dL (2.5-4.90); Total Protein 4.6 g/dL (6.4-8.2)
[2021-07-25] MEDS: PANTOPRAZOLE 40 MG/10 ML VIAL INJ IV SCH ×2 (08:38→22:00)
[2021-07-25] MEDS: CHOLECALCIFEROL (VITD3) 2,000 UNIT CAP/TAB PO SCH (08:38)
[2021-07-25] MEDS: DexAMETHasone SOD PHOS 10MG/1ML VIAL INJ IV SCH (08:38)
[2021-07-25] MEDS: ASCORBIC ACID 1,000 MG TAB PO SCH (08:39)
[2021-07-25] MEDS: ZINC SULFATE 220mg CAP or TAB PO SCH (08:39)
[2021-07-25] MEDS: SODIUM CHLOR 0.9% PF (SALINE LOCK) 10ML VIAL/SYR IV SCH ×2 (08:40→22:00)
[2021-07-25] MEDS: BUDESONIDE (INHALATION) 0.5 MG/2 ML NEB NEB SCH ×2 (09:54→22:21)
[2021-07-25] MEDS: ALBUTEROL SULF 2.5 MG/0.5ML(0.5%) NEB SOLN NEB PRN ×2 (09:54→22:21)
[2021-07-25] MEDS: NOREPINEPHRINE 8 MG/250ML KIT 250 ML IV SCH (14:55)
[2021-07-25] MEDS: MIDAZOLAM DRIP 50 mg/50mL 50 ML IV SCH ×2 (15:18→20:00)
[2021-07-25] MEDS: DOBUTamine 1000MCG/ML 250 ML IV SCH (17:05)
[2021-07-25] MEDS: DOPamine 1600MCG/ML D5W 250 ML IV SCH (19:15)
[2021-07-25] MEDS: TPN PER PHARMACY IV NR ×17 (19:53→20:00)
[2021-07-26] VITALS (97 sets, daily range): BP systolic 96–156; BP diastolic 44–63
[2021-07-26] MEDS: PIPERACILLIN-TAZOB 3.375GM 100 ML IV SCH ×6 (01:00→21:00)
[2021-07-26] MEDS: PROPOFOL 100 ML IV SCH (01:00)
[2021-07-26] MEDS: fentaNYL Drip 2500mCg/250mlNS 250 ML IV SCH ×2 (01:00→18:36)
[2021-07-26] MEDS: InsuLIN REG 1unit/0.01ml Soln (100units/ml) SC SCH ×4 (01:25→17:55)
[2021-07-26] MEDS: ACCU-CHEK COMFORT CURVE STRIP VI SCH ×4 (01:26→17:56)
[2021-07-26] MEDS: VANCOMYCIN 750mg/250ml 250 ML IV SCH ×3 (03:42→21:07)
[2021-07-26] MEDS: MIDAZOLAM DRIP 50 mg/50mL 50 ML IV SCH ×5 (04:00→22:00)
[2021-07-26 05:57] LABS: Basophils # (auto) 0 10 ^3/uL (0-0.2); Basophils % (auto) 0.1 % (0.0-2.0); Eosinophils # (auto) 0 10 ^3/uL (0-0.8); Hematocrit 25.1 % (36.0-46.0); Hemoglobin 7.6 g/dL (12.2-16.2); Lymphocytes # (auto) 0.7 10 ^3/uL (0.4-5.4); Monocytes # (auto) 1.2 10 ^3/uL (0-1.3)
[2021-07-26] MEDS: BUDESONIDE (INHALATION) 0.5 MG/2 ML NEB NEB SCH (05:57)
[2021-07-26] MEDS: ALBUTEROL SULF 2.5 MG/0.5ML(0.5%) NEB SOLN NEB PRN (05:57)
[2021-07-26 06:00] LABS: Lymphocytes % (auto) 4.6 % (10.0-50.0); Mean Corpuscular Hemoglobin 32.3 pg (28.0-32.0); Mean Corpuscular Hgb Conc. 30.4 g/dL (32.0-36.0); Mean Corpuscular Volume 106.2 fL (80.0-100.0); Monocytes % (auto) 8.3 % (0.0-12.0); Neutrophils # (auto) 12.8 10 ^3/uL (1.6-8.6); Red Blood Cells 2.36 10^6/uL (4.0-5.20); Red Cell Distribution Width 18.5 % (11.8-14.3); White Blood Cell 14.8 10^3/uL (4.4-10.8)
[2021-07-26] MEDS: VASOPRESSIN 50 UNITS in D5W 5% 247.5 ML IV SCH (06:30)
[2021-07-26] MEDS: METOCLOPRAMIDE HCL 5MG/ml INJ 2ml VIAL IV SCH ×3 (07:24→23:19)
[2021-07-26] MEDS: SODIUM CHLOR 0.9% PF (SALINE LOCK) 10ML VIAL/SYR IV SCH ×2 (10:11→22:00)
[2021-07-26] MEDS: PANTOPRAZOLE 40 MG/10 ML VIAL INJ IV SCH ×2 (10:11→23:18)
[2021-07-26] MEDS: DexAMETHasone SOD PHOS 10MG/1ML VIAL INJ IV SCH (10:11)
[2021-07-26] MEDS: ASCORBIC ACID 1,000 MG TAB PO SCH (10:25)
[2021-07-26] MEDS: ZINC SULFATE 220mg CAP or TAB PO SCH (10:25)
[2021-07-26] MEDS: CHOLECALCIFEROL (VITD3) 2,000 UNIT CAP/TAB PO SCH (10:25)
[2021-07-26 12:06] LABS: Albumin 1.1 g/dL (3.4-5.0); Calcium 7.6 mg/dL (8.5-10.1); Magnesium 2.7 mg/dL (1.6-2.6)
[2021-07-26 12:09] LABS: Bilirubin, Total 0.2 mg/dL (0.2-1.0); Phosphorus 2.2 mg/dL (2.5-4.90); Total Protein 4.8 g/dL (6.4-8.2)
[2021-07-26] MEDS: DOBUTamine 1000MCG/ML 250 ML IV SCH (13:30)
[2021-07-26] MEDS ORDERED: POTASSIUM PHOSP 22MEQ(15MMOLE) in NS 100 ML IV ONE (14:00)
[2021-07-26] MEDS ORDERED: PIPERACILLIN-TAZOB 3.375GM 100 ML IV SCH (14:45)
[2021-07-26] MEDS ORDERED: MICAFUNGIN SODIUM 100 MG in SODIUM CHL 0.9% 100 ML IV ONE (15:00)
[2021-07-26] MEDS: NOREPINEPHRINE 8 MG/250ML KIT 250 ML IV SCH (18:34)
[2021-07-26] MEDS: DOPamine 1600MCG/ML D5W 250 ML IV SCH (19:15)
[2021-07-26] MEDS: TPN PER PHARMACY IV NR ×9 (19:51)
[2021-07-26] MEDS ORDERED: TPN PER PHARMACY IV NR ×7 (20:00)
[2021-07-27] VITALS (83 sets, daily range): BP systolic 57–168; BP diastolic 26–84
[2021-07-27] MEDS: ALBUTEROL SULF 2.5 MG/0.5ML(0.5%) NEB SOLN NEB PRN ×3 (00:09→22:49)
[2021-07-27] MEDS: BUDESONIDE (INHALATION) 0.5 MG/2 ML NEB NEB SCH ×3 (00:10→22:49)
[2021-07-27] MEDS: PIPERACILLIN-TAZOB 3.375GM 100 ML IV SCH ×5 (01:00→18:51)
[2021-07-27] MEDS: PROPOFOL 100 ML IV SCH (01:00)
[2021-07-27] MEDS: ACCU-CHEK COMFORT CURVE STRIP VI SCH ×4 (06:00→18:00)
[2021-07-27] MEDS: InsuLIN REG 1unit/0.01ml Soln (100units/ml) SC SCH ×4 (06:00→18:00)
[2021-07-27] MEDS: VANCOMYCIN 750mg/250ml 250 ML IV SCH ×2 (06:00→16:19)
[2021-07-27] MEDS: METOCLOPRAMIDE HCL 5MG/ml INJ 2ml VIAL IV SCH ×3 (06:00→22:54)
[2021-07-27 06:19] LABS: Magnesium 2.6 mg/dL (1.6-2.6)
[2021-07-27 06:26] LABS: Hematocrit 25.8 % (36.0-46.0); Hemoglobin 8.5 g/dL (12.2-16.2); Mean Corpuscular Hemoglobin 31.5 pg (28.0-32.0); Mean Corpuscular Hgb Conc. 32.9 g/dL (32.0-36.0); Mean Corpuscular Volume 95.7 fL (80.0-100.0); Red Blood Cells 2.69 10^6/uL (4.0-5.20); Red Cell Distribution Width 16.7 % (11.8-14.3); White Blood Cell 17.9 10^3/uL (4.4-10.8)
[2021-07-27 06:27] LABS: BUN/Creatinine Ratio 39.6; Bilirubin, Total 0.3 mg/dL (0.2-1.0); Phosphorus 2.1 mg/dL (2.5-4.90); Total Protein 4.2 g/dL (6.4-8.2)
[2021-07-27] MEDS: VASOPRESSIN 50 UNITS in D5W 5% 247.5 ML IV SCH (06:30)
[2021-07-27 06:44] LABS: Basophils % (manual) 0 (0.0-2.0); Blast Cells 0; Eosinophils % (manual) 0 (0-7); Promyelocytes % 0; Reactive Lymphocytes 0
[2021-07-27] MEDS ORDERED: NOREPINEPHRINE 8 MG/250ML KIT 250 ML IV ONE (07:26)
[2021-07-27 07:48] LABS: Calcium 5.8 mg/dL (8.5-10.1); Potassium 2.8 mmol/L (3.5-5.1)
[2021-07-27 07:54] LABS: Band Neutrophils % (manual) 1; Lymphocytes % (manual) 4 (10.0-50.0); Metamyelocytes % 1; Monocytes % (manual) 10 (0-12); Myelocytes % 1
[2021-07-27] MEDS: MIDAZOLAM DRIP 50 mg/50mL 50 ML IV SCH ×2 (07:58→18:54)
[2021-07-27] MEDS: DOBUTamine 1000MCG/ML 250 ML IV SCH (08:25)
[2021-07-27] MEDS: ZINC SULFATE 220mg CAP or TAB PO SCH (09:02)
[2021-07-27] MEDS: PANTOPRAZOLE 40 MG/10 ML VIAL INJ IV SCH ×2 (09:02→22:54)
[2021-07-27] MEDS: ASCORBIC ACID 1,000 MG TAB PO SCH (09:03)
[2021-07-27] MEDS: MICAFUNGIN SODIUM 100 MG in SODIUM CHL 0.9% 100 ML IV SCH (09:03)
[2021-07-27] MEDS: SODIUM CHLOR 0.9% PF (SALINE LOCK) 10ML VIAL/SYR IV SCH ×2 (09:03→22:55)
[2021-07-27] MEDS: CHOLECALCIFEROL (VITD3) 2,000 UNIT CAP/TAB PO SCH (09:03)
[2021-07-27] MEDS: DexAMETHasone SOD PHOS 10MG/1ML VIAL INJ IV SCH (09:04)
[2021-07-27] MEDS ORDERED: POTASSIUM CHL 20MEQ/50ML 50 ML IV ONE (11:45)
[2021-07-27] MEDS ORDERED: POTASSIUM PHOSPHATE 44 MEQ in D5W 5% 250 ML IV ONE ×2 (11:45→14:00)
[2021-07-27] MEDS: DOPamine 1600MCG/ML D5W 250 ML IV SCH (17:19)
[2021-07-27] MEDS: NOREPINEPHRINE BITARTRATE 32 MG in SODIUM CHL 0.9% 218 ML IV SCH (18:50)
[2021-07-27] MEDS: TPN PER PHARMACY IV NR ×7 (21:55)
[2021-07-28] VITALS (78 sets, daily range): BP systolic 71–173; BP diastolic 28–99
[2021-07-28] MEDS: fentaNYL Drip 2500mCg/250mlNS 250 ML IV SCH (01:00)
[2021-07-28] MEDS: PROPOFOL 100 ML IV SCH (01:00)
[2021-07-28] MEDS: VANCOMYCIN 750mg/250ml 250 ML IV SCH ×2 (02:00→12:00)
[2021-07-28] MEDS: InsuLIN REG 1unit/0.01ml Soln (100units/ml) SC SCH ×5 (02:04→23:07)
[2021-07-28] MEDS: ACCU-CHEK COMFORT CURVE STRIP VI SCH ×5 (02:04→23:07)
[2021-07-28 06:03] LABS: Albumin 1.3 g/dL (3.4-5.0); Calcium 7.1 mg/dL (8.5-10.1); Magnesium 2.5 mg/dL (1.6-2.6); Potassium 4.7 mmol/L (3.5-5.1)
[2021-07-28] MEDS: BUDESONIDE (INHALATION) 0.5 MG/2 ML NEB NEB SCH ×2 (06:06→22:42)
[2021-07-28] MEDS: ALBUTEROL SULF 2.5 MG/0.5ML(0.5%) NEB SOLN NEB PRN ×3 (06:06→22:42)
[2021-07-28 06:07] LABS: BUN/Creatinine Ratio 53.1; Bilirubin, Total 0.2 mg/dL (0.2-1.0)
[2021-07-28] MEDS: DOBUTamine 1000MCG/ML 250 ML IV SCH (06:20)
[2021-07-28] MEDS: VASOPRESSIN 50 UNITS in D5W 5% 247.5 ML IV SCH (06:30)
[2021-07-28] MEDS: NOREPINEPHRINE BITARTRATE 32 MG in SODIUM CHL 0.9% 218 ML IV SCH (06:45)
[2021-07-28 07:29] LABS: Eosinophils # (auto) 0 10 ^3/uL (0-0.8); Hemoglobin 10.3 g/dL (12.2-16.2); Monocytes # (auto) 2.7 10 ^3/uL (0-1.3); Monocytes % (auto) 13.6 % (0.0-12.0)
[2021-07-28 07:32] LABS: Basophils # (auto) 0 10 ^3/uL (0-0.2); Basophils % (auto) 0.2 % (0.0-2.0); Hematocrit 31.4 % (36.0-46.0); Lymphocytes % (auto) 5.4 % (10.0-50.0); Mean Corpuscular Hemoglobin 31.5 pg (28.0-32.0); Mean Corpuscular Hgb Conc. 32.7 g/dL (32.0-36.0); Mean Corpuscular Volume 96.3 fL (80.0-100.0); Neutrophils # (auto) 15.7 10 ^3/uL (1.6-8.6); Neutrophils % (auto) 80.8 % (37.0-80.0); Nucleated Red Blood Cells % 0.4 %; Red Blood Cells 3.26 10^6/uL (4.0-5.20); Red Cell Distribution Width 17.7 % (11.8-14.3); White Blood Cell 19.5 10^3/uL (4.4-10.8)
[2021-07-28] MEDS: PIPERACILLIN-TAZOB 3.375GM 100 ML IV SCH ×3 (07:39→13:30)
[2021-07-28] MEDS: METOCLOPRAMIDE HCL 5MG/ml INJ 2ml VIAL IV SCH ×3 (07:39→20:27)
[2021-07-28] MEDS: DexAMETHasone SOD PHOS 10MG/1ML VIAL INJ IV SCH (07:49)
[2021-07-28] MEDS: PANTOPRAZOLE 40 MG/10 ML VIAL INJ IV SCH ×2 (07:49→20:26)
[2021-07-28] MEDS: SODIUM CHLOR 0.9% PF (SALINE LOCK) 10ML VIAL/SYR IV SCH ×2 (07:49→20:27)
[2021-07-28] MEDS: ZINC SULFATE 220mg CAP or TAB PO SCH (07:50)
[2021-07-28] MEDS: CHOLECALCIFEROL (VITD3) 2,000 UNIT CAP/TAB PO SCH (07:50)
[2021-07-28] MEDS: ASCORBIC ACID 1,000 MG TAB PO SCH (07:50)
[2021-07-28] MEDS: MICAFUNGIN SODIUM 100 MG in SODIUM CHL 0.9% 100 ML IV SCH (13:29)
[2021-07-28] MEDS: DOPamine 1600MCG/ML D5W 250 ML IV SCH (15:48)
[2021-07-28] MEDS: MIDAZOLAM DRIP 50 mg/50mL 50 ML IV SCH ×2 (15:48→23:52)
[2021-07-28 16:50] LABS: Hematocrit 31.6 % (36.0-46.0); Mean Corpuscular Volume 96.5 fL (80.0-100.0); Red Blood Cells 3.27 10^6/uL (4.0-5.20)
[2021-07-28 16:52] LABS: Hemoglobin 10.3 g/dL (12.2-16.2); Mean Corpuscular Hemoglobin 31.6 pg (28.0-32.0); Mean Corpuscular Hgb Conc. 32.8 g/dL (32.0-36.0); Red Cell Distribution Width 17.1 % (11.8-14.3); White Blood Cell 18.4 10^3/uL (4.4-10.8)
[2021-07-28 17:20] LABS: Band Neutrophils % (manual) 0; Basophils % (manual) 0 (0.0-2.0); Blast Cells 0; Eosinophils % (manual) 0 (0-7); Promyelocytes % 0; Reactive Lymphocytes 0
[2021-07-28 18:28] LABS: Lymphocytes % (manual) 5 (10.0-50.0); Metamyelocytes % 1; Monocytes % (manual) 5 (0-12); Myelocytes % 2
[2021-07-28] MEDS: TPN PER PHARMACY IV NR ×7 (19:55)
[2021-07-28] MEDS ORDERED: TPN PER PHARMACY IV NR ×8 (20:00)
[2021-07-29] VITALS (99 sets, daily range): BP systolic 70–164; BP diastolic 26–72
[2021-07-29] MEDS: PROPOFOL 100 ML IV SCH (01:00)
[2021-07-29] MEDS: fentaNYL Drip 2500mCg/250mlNS 250 ML IV SCH ×2 (01:00→17:18)
[2021-07-29] MEDS: DOBUTamine 1000MCG/ML 250 ML IV SCH ×2 (02:45→23:10)
[2021-07-29] MEDS: ACCU-CHEK COMFORT CURVE STRIP VI SCH ×2 (05:09→12:00)
[2021-07-29] MEDS: InsuLIN REG 1unit/0.01ml Soln (100units/ml) SC SCH ×2 (05:09→12:47)
[2021-07-29] MEDS: METOCLOPRAMIDE HCL 5MG/ml INJ 2ml VIAL IV SCH ×3 (05:14→21:41)
[2021-07-29] MEDS: ALBUTEROL SULF 2.5 MG/0.5ML(0.5%) NEB SOLN NEB PRN ×2 (06:07→22:26)
[2021-07-29] MEDS: BUDESONIDE (INHALATION) 0.5 MG/2 ML NEB NEB SCH ×2 (06:08→22:26)
[2021-07-29] MEDS: VASOPRESSIN 50 UNITS in D5W 5% 247.5 ML IV SCH (06:30)
[2021-07-29 06:31] LABS: Magnesium 1.5 mg/dL (1.6-2.6); Potassium 3.3 mmol/L (3.5-5.1)
[2021-07-29 06:37] LABS: BUN/Creatinine Ratio 140.9; Bilirubin, Total 0.1 mg/dL (0.2-1.0); Phosphorus 1.6 mg/dL (2.5-4.90); Total Protein 3.5 g/dL (6.4-8.2)
[2021-07-29] MEDS: NOREPINEPHRINE BITARTRATE 32 MG in SODIUM CHL 0.9% 218 ML IV SCH (06:45)
[2021-07-29 06:54] LABS: Albumin 0.9 g/dL (3.4-5.0); Calcium 5.3 mg/dL (8.5-10.1)
[2021-07-29 08:54] LABS: Hematocrit 27.8 % (36.0-46.0); Hemoglobin 9.3 g/dL (12.2-16.2); Mean Corpuscular Hemoglobin 32.2 pg (28.0-32.0); Mean Corpuscular Hgb Conc. 33.4 g/dL (32.0-36.0); Mean Corpuscular Volume 96.4 fL (80.0-100.0); Red Blood Cells 2.89 10^6/uL (4.0-5.20); Red Cell Distribution Width 16.7 % (11.8-14.3); White Blood Cell 14.8 10^3/uL (4.4-10.8)
[2021-07-29 09:08] LABS: Potassium 4.3 mmol/L (3.5-5.1)
[2021-07-29 09:14] LABS: BUN/Creatinine Ratio 90.9
[2021-07-29 09:15] LABS: Albumin 1.2 g/dL (3.4-5.0); Bilirubin, Total 0.2 mg/dL (0.2-1.0); Calcium 7.4 mg/dL (8.5-10.1); Total Protein 4.4 g/dL (6.4-8.2)
[2021-07-29] MEDS ORDERED: POTASSIUM PHOSPHATE 44 MEQ in D5W 5% 250 ML IV ONE (09:30)
[2021-07-29 09:35] LABS: Basophils % (manual) 0 (0.0-2.0); Blast Cells 0; Eosinophils % (manual) 0 (0-7); Promyelocytes % 0; Reactive Lymphocytes 0
[2021-07-29] MEDS: SODIUM CHLOR 0.9% PF (SALINE LOCK) 10ML VIAL/SYR IV SCH ×2 (09:43→21:41)
[2021-07-29] MEDS: DexAMETHasone SOD PHOS 10MG/1ML VIAL INJ IV SCH (09:43)
[2021-07-29] MEDS: ASCORBIC ACID 1,000 MG TAB PO SCH (09:43)
[2021-07-29] MEDS: ZINC SULFATE 220mg CAP or TAB PO SCH (09:43)
[2021-07-29] MEDS: CHOLECALCIFEROL (VITD3) 2,000 UNIT CAP/TAB PO SCH (09:43)
[2021-07-29] MEDS: PANTOPRAZOLE 40 MG/10 ML VIAL INJ IV SCH ×2 (09:43→21:41)
[2021-07-29] MEDS: DOPamine 1600MCG/ML D5W 250 ML IV SCH (09:50)
[2021-07-29] MEDS: MIDAZOLAM DRIP 50 mg/50mL 50 ML IV SCH ×3 (09:50→22:21)
[2021-07-29 10:06] LABS: Band Neutrophils % (manual) 11; Lymphocytes % (manual) 14 (10.0-50.0); Metamyelocytes % 2; Monocytes % (manual) 6 (0-12); Myelocytes % 1
[2021-07-29] MEDS: MICAFUNGIN SODIUM 100 MG in SODIUM CHL 0.9% 100 ML IV SCH (12:41)
[2021-07-29] MEDS ORDERED: Jevity 1.2 Cal/Fiber 1 Liter GT SCH (15:00)
[2021-07-29] MEDS: VANCOMYCIN 750mg/250ml 250 ML IV SCH (16:04)
[2021-07-30] VITALS (98 sets, daily range): BP systolic 90–222; BP diastolic 36–82
[2021-07-30] MEDS: PROPOFOL 100 ML IV SCH (01:00)
[2021-07-30 03:28] LABS: Hemoglobin 9.2 g/dL (12.2-16.2)
[2021-07-30 03:30] LABS: Hematocrit 27.9 % (36.0-46.0); Mean Corpuscular Hemoglobin 31.6 pg (28.0-32.0); Mean Corpuscular Hgb Conc. 32.8 g/dL (32.0-36.0); Mean Corpuscular Volume 96.3 fL (80.0-100.0); Red Cell Distribution Width 16.4 % (11.8-14.3); White Blood Cell 17.8 10^3/uL (4.4-10.8)
[2021-07-30 03:47] LABS: Basophils % (manual) 0 (0.0-2.0); Blast Cells 0; Eosinophils % (manual) 0 (0-7); Metamyelocytes % 0; Promyelocytes % 0; Reactive Lymphocytes 0
[2021-07-30 04:26] LABS: Albumin 1.1 g/dL (3.4-5.0); Calcium 6.5 mg/dL (8.5-10.1); Potassium 4.3 mmol/L (3.5-5.1)
[2021-07-30 04:29] LABS: Band Neutrophils % (manual) 19; Lymphocytes % (manual) 7 (10.0-50.0); Monocytes % (manual) 5 (0-12); Myelocytes % 5
[2021-07-30 04:30] LABS: BUN/Creatinine Ratio 94.7; Bilirubin, Total 0.3 mg/dL (0.2-1.0); Total Protein 4.4 g/dL (6.4-8.2)
[2021-07-30] MEDS: VANCOMYCIN 750mg/250ml 250 ML IV SCH ×2 (05:13→19:49)
[2021-07-30] MEDS: METOCLOPRAMIDE HCL 5MG/ml INJ 2ml VIAL IV SCH ×3 (05:13→21:51)
[2021-07-30] MEDS: NOREPINEPHRINE BITARTRATE 32 MG in SODIUM CHL 0.9% 218 ML IV SCH (05:33)
[2021-07-30] MEDS: BUDESONIDE (INHALATION) 0.5 MG/2 ML NEB NEB SCH ×2 (06:21→18:11)
[2021-07-30] MEDS: ALBUTEROL SULF 2.5 MG/0.5ML(0.5%) NEB SOLN NEB PRN ×2 (06:21→18:11)
[2021-07-30] MEDS: VASOPRESSIN 50 UNITS in D5W 5% 247.5 ML IV SCH (06:30)
[2021-07-30] MEDS ORDERED: PROVIGIL PO SCH (07:00)
[2021-07-30] MEDS: ARMODAFINIL 150 MG TAB GT SCH (07:58)
[2021-07-30] MEDS: ZINC SULFATE 220mg CAP or TAB PO SCH (10:19)
[2021-07-30] MEDS: CHOLECALCIFEROL (VITD3) 2,000 UNIT CAP/TAB PO SCH (10:19)
[2021-07-30] MEDS: PANTOPRAZOLE 40 MG/10 ML VIAL INJ IV SCH ×2 (10:20→21:51)
[2021-07-30] MEDS: SODIUM CHLOR 0.9% PF (SALINE LOCK) 10ML VIAL/SYR IV SCH ×2 (10:20→21:51)
[2021-07-30] MEDS: DexAMETHasone SOD PHOS 10MG/1ML VIAL INJ IV SCH (10:20)
[2021-07-30] MEDS: ASCORBIC ACID 1,000 MG TAB PO SCH (10:20)
[2021-07-30] MEDS: MICAFUNGIN SODIUM 100 MG in SODIUM CHL 0.9% 100 ML IV SCH (10:22)
[2021-07-30] MEDS ORDERED: PPN PER PHARMACY 0 ML IV SCH (12:15)
[2021-07-30 12:38] LABS: Pre Albumin 16.8 mg/dL (20.0-40.0)
[2021-07-30] MEDS ORDERED: TPN PER PHARMACY 0 ML IV SCH (12:45)
[2021-07-30] MEDS ORDERED: METOCLOPRAMIDE HCL 5MG/ml INJ 2ml VIAL ONE (13:46)
[2021-07-30] MEDS: DOPamine 1600MCG/ML D5W 250 ML IV SCH (19:15)
[2021-07-30] MEDS: DOBUTamine 1000MCG/ML 250 ML IV SCH (19:35)
[2021-07-30] MEDS ORDERED: TPN PER PHARMACY IV NR ×8 (20:00)
[2021-07-30] MEDS: MIDAZOLAM DRIP 50 mg/50mL 50 ML IV SCH (21:42)
[2021-07-31] VITALS (92 sets, daily range): BP systolic 82–167; BP diastolic 13–71
[2021-07-31] MEDS: ACCU-CHEK COMFORT CURVE STRIP VI SCH ×4 (00:03→18:15)
[2021-07-31] MEDS: InsuLIN REG 1unit/0.01ml Soln (100units/ml) SC SCH ×4 (00:04→18:10)
[2021-07-31] MEDS: PROPOFOL 100 ML IV SCH (01:00)
[2021-07-31 04:33] LABS: Hematocrit 31.6 % (36.0-46.0); Hemoglobin 10.3 g/dL (12.2-16.2); Mean Corpuscular Hemoglobin 31.5 pg (28.0-32.0); Mean Corpuscular Hgb Conc. 32.8 g/dL (32.0-36.0); Mean Corpuscular Volume 96.2 fL (80.0-100.0); Red Blood Cells 3.28 10^6/uL (4.0-5.20); Red Cell Distribution Width 16.1 % (11.8-14.3); White Blood Cell 17.4 10^3/uL (4.4-10.8)
[2021-07-31 04:54] LABS: Potassium 4.4 mmol/L (3.5-5.1)
[2021-07-31 04:59] LABS: Albumin 1.3 g/dL (3.4-5.0); BUN/Creatinine Ratio 81.6; Calcium 6.8 mg/dL (8.5-10.1); Magnesium 2.3 mg/dL (1.6-2.6)
[2021-07-31 05:01] LABS: Bilirubin, Total 0.4 mg/dL (0.2-1.0); Phosphorus 2.8 mg/dL (2.5-4.90); Total Protein 4.6 g/dL (6.4-8.2)
[2021-07-31 05:30] LABS: Basophils % (manual) 0 (0.0-2.0); Blast Cells 0; Eosinophils % (manual) 0 (0-7); Metamyelocytes % 0; Promyelocytes % 0; Reactive Lymphocytes 0
[2021-07-31] MEDS: METOCLOPRAMIDE HCL 5MG/ml INJ 2ml VIAL IV SCH ×3 (06:11→22:33)
[2021-07-31] MEDS: BUDESONIDE (INHALATION) 0.5 MG/2 ML NEB NEB SCH ×2 (06:18→22:03)
[2021-07-31] MEDS: ALBUTEROL SULF 2.5 MG/0.5ML(0.5%) NEB SOLN NEB PRN ×2 (06:18→22:03)
[2021-07-31] MEDS: VASOPRESSIN 50 UNITS in D5W 5% 247.5 ML IV SCH (06:30)
[2021-07-31] MEDS: NOREPINEPHRINE BITARTRATE 32 MG in SODIUM CHL 0.9% 218 ML IV SCH (06:45)
[2021-07-31 07:06] LABS: Band Neutrophils % (manual) 28; Lymphocytes % (manual) 6 (10.0-50.0); Monocytes % (manual) 4 (0-12); Myelocytes % 3
[2021-07-31] MEDS: fentaNYL Drip 2500mCg/250mlNS 250 ML IV SCH (07:19)
[2021-07-31] MEDS: ARMODAFINIL 150 MG TAB GT SCH (08:11)
[2021-07-31] MEDS: DexAMETHasone SOD PHOS 10MG/1ML VIAL INJ IV SCH (10:19)
[2021-07-31] MEDS: SODIUM CHLOR 0.9% PF (SALINE LOCK) 10ML VIAL/SYR IV SCH ×2 (10:19→22:33)
[2021-07-31] MEDS: PANTOPRAZOLE 40 MG/10 ML VIAL INJ IV SCH ×2 (10:19→22:33)
[2021-07-31] MEDS: ZINC SULFATE 220mg CAP or TAB PO SCH (10:21)
[2021-07-31] MEDS: ASCORBIC ACID 1,000 MG TAB PO SCH (10:22)
[2021-07-31] MEDS: CHOLECALCIFEROL (VITD3) 2,000 UNIT CAP/TAB PO SCH (10:22)
[2021-07-31] MEDS: MICAFUNGIN SODIUM 100 MG in SODIUM CHL 0.9% 100 ML IV SCH (10:23)
[2021-07-31] MEDS ORDERED: FUROSEMIDE 40 MG/4 ML VIAL ONE (10:37)
[2021-07-31] MEDS ORDERED: FUROSEMIDE 40 MG/4 ML VIAL IV ONE (10:45)
[2021-07-31] MEDS ORDERED: VANCOMYCIN 750mg/250ml 250 ML IV SCH (14:00)
[2021-07-31] MEDS: DOBUTamine 1000MCG/ML 250 ML IV SCH (16:00)
[2021-07-31] MEDS ORDERED: METOCLOPRAMIDE HCL 5MG/ml INJ 2ml VIAL ONE (17:51)
[2021-07-31] MEDS: DOPamine 1600MCG/ML D5W 250 ML IV SCH (19:15)
[2021-07-31] MEDS ORDERED: TPN PER PHARMACY IV NR ×9 (20:00)
[2021-08-01] VITALS (99 sets, daily range): BP systolic 47–231; BP diastolic 23–108
[2021-08-01] MEDS: InsuLIN REG 1unit/0.01ml Soln (100units/ml) SC SCH ×5 (00:46→23:57)
[2021-08-01] MEDS: fentaNYL Drip 2500mCg/250mlNS 250 ML IV SCH (01:00)
[2021-08-01] MEDS: PROPOFOL 100 ML IV SCH (01:00)
[2021-08-01 04:36] LABS: Albumin 1.3 g/dL (3.4-5.0); BUN/Creatinine Ratio 85.4; Calcium 7.1 mg/dL (8.5-10.1); Magnesium 2.3 mg/dL (1.6-2.6); Potassium 3.9 mmol/L (3.5-5.1)
[2021-08-01 04:37] LABS: Bilirubin, Total 0.5 mg/dL (0.2-1.0); Total Protein 4.7 g/dL (6.4-8.2)
[2021-08-01] MEDS: MIDAZOLAM DRIP 50 mg/50mL 50 ML IV SCH (05:00)
[2021-08-01] MEDS: METOCLOPRAMIDE HCL 5MG/ml INJ 2ml VIAL IV SCH ×3 (06:03→21:20)
[2021-08-01] MEDS: ACCU-CHEK COMFORT CURVE STRIP VI SCH ×5 (06:04→23:56)
[2021-08-01] MEDS: NOREPINEPHRINE BITARTRATE 32 MG in SODIUM CHL 0.9% 218 ML IV SCH (06:05)
[2021-08-01] MEDS: VASOPRESSIN 50 UNITS in D5W 5% 247.5 ML IV SCH (06:05)
[2021-08-01] MEDS: ALBUTEROL SULF 2.5 MG/0.5ML(0.5%) NEB SOLN NEB PRN (06:23)
[2021-08-01] MEDS: BUDESONIDE (INHALATION) 0.5 MG/2 ML NEB NEB SCH ×2 (06:23→22:00)
[2021-08-01] MEDS: ARMODAFINIL 150 MG TAB GT SCH (08:22)
[2021-08-01] MEDS: MICAFUNGIN SODIUM 100 MG in SODIUM CHL 0.9% 100 ML IV SCH (10:00)
[2021-08-01] MEDS: PANTOPRAZOLE 40 MG/10 ML VIAL INJ IV SCH ×2 (10:00→21:20)
[2021-08-01] MEDS: ASCORBIC ACID 1,000 MG TAB PO SCH (10:00)
[2021-08-01] MEDS: ZINC SULFATE 220mg CAP or TAB PO SCH (10:00)
[2021-08-01] MEDS: SODIUM CHLOR 0.9% PF (SALINE LOCK) 10ML VIAL/SYR IV SCH ×2 (10:00→21:20)
[2021-08-01] MEDS: CHOLECALCIFEROL (VITD3) 2,000 UNIT CAP/TAB PO SCH (10:00)
[2021-08-01] MEDS: DexAMETHasone SOD PHOS 10MG/1ML VIAL INJ IV SCH (10:00)
[2021-08-01] MEDS: DOBUTamine 1000MCG/ML 250 ML IV SCH (12:25)
[2021-08-01] MEDS: DOPamine 1600MCG/ML D5W 250 ML IV SCH (19:15)
[2021-08-01] MEDS ORDERED: TPN PER PHARMACY IV NR ×9 (20:00)
[2021-08-02] VITALS (101 sets, daily range): BP systolic 84–146; BP diastolic 44–104
[2021-08-02] MEDS: PROPOFOL 100 ML IV SCH ×2 (01:00→01:23)
[2021-08-02] MEDS: fentaNYL Drip 2500mCg/250mlNS 250 ML IV SCH (01:00)
[2021-08-02 04:47] LABS: Albumin 1.3 g/dL (3.4-5.0); Calcium 6.8 mg/dL (8.5-10.1); Magnesium 3.2 mg/dL (1.6-2.6); Potassium 4.1 mmol/L (3.5-5.1)
[2021-08-02 04:51] LABS: Bilirubin, Total 0.5 mg/dL (0.2-1.0); Phosphorus 3.9 mg/dL (2.5-4.90); Total Protein 4.9 g/dL (6.4-8.2)
[2021-08-02] MEDS: MIDAZOLAM DRIP 50 mg/50mL 50 ML IV SCH ×4 (05:12→21:05)
[2021-08-02] MEDS: InsuLIN REG 1unit/0.01ml Soln (100units/ml) SC SCH ×3 (06:00→18:29)
[2021-08-02] MEDS: ACCU-CHEK COMFORT CURVE STRIP VI SCH ×3 (06:00→18:00)
[2021-08-02] MEDS: METOCLOPRAMIDE HCL 5MG/ml INJ 2ml VIAL IV SCH ×3 (06:00→21:04)
[2021-08-02] MEDS: BUDESONIDE (INHALATION) 0.5 MG/2 ML NEB NEB SCH ×2 (06:22→21:37)
[2021-08-02] MEDS: ALBUTEROL SULF 2.5 MG/0.5ML(0.5%) NEB SOLN NEB PRN ×2 (06:22→21:38)
[2021-08-02] MEDS: VASOPRESSIN 50 UNITS in D5W 5% 247.5 ML IV SCH (06:30)
[2021-08-02] MEDS: NOREPINEPHRINE BITARTRATE 32 MG in SODIUM CHL 0.9% 218 ML IV SCH (06:45)
[2021-08-02] MEDS: DOBUTamine 1000MCG/ML 250 ML IV SCH (09:00)
[2021-08-02 11:25] LABS: Hematocrit 33.2 % (36.0-46.0); Hemoglobin 10.7 g/dL (12.2-16.2); Mean Corpuscular Hemoglobin 31.3 pg (28.0-32.0); Mean Corpuscular Hgb Conc. 32.2 g/dL (32.0-36.0); Mean Corpuscular Volume 97.2 fL (80.0-100.0); Red Blood Cells 3.42 10^6/uL (4.0-5.20); Red Cell Distribution Width 16.2 % (11.8-14.3); White Blood Cell 19.9 10^3/uL (4.4-10.8)
[2021-08-02 11:28] LABS: Basophils % (manual) 0 (0.0-2.0); Blast Cells 0; Eosinophils % (manual) 0 (0-7); Promyelocytes % 0; Reactive Lymphocytes 0
[2021-08-02] MEDS: DexAMETHasone SOD PHOS 10MG/1ML VIAL INJ IV SCH (11:39)
[2021-08-02] MEDS: SODIUM CHLOR 0.9% PF (SALINE LOCK) 10ML VIAL/SYR IV SCH ×2 (11:40→21:04)
[2021-08-02] MEDS: MICAFUNGIN SODIUM 100 MG in SODIUM CHL 0.9% 100 ML IV SCH (11:40)
[2021-08-02] MEDS: PANTOPRAZOLE 40 MG/10 ML VIAL INJ IV SCH ×2 (11:40→21:04)
[2021-08-02] MEDS: ZINC SULFATE 220mg CAP or TAB PO SCH (11:40)
[2021-08-02 11:41] LABS: INR 1.17 (0.9-1.15); Partial Thromboplastin Time 24.8 sec (23.6-33.0)
[2021-08-02] MEDS: ASCORBIC ACID 1,000 MG TAB PO SCH (11:41)
[2021-08-02] MEDS: CHOLECALCIFEROL (VITD3) 2,000 UNIT CAP/TAB PO SCH (11:41)
[2021-08-02 12:05] LABS: Band Neutrophils % (manual) 7; Lymphocytes % (manual) 2 (10.0-50.0); Metamyelocytes % 1; Monocytes % (manual) 2 (0-12); Myelocytes % 1
[2021-08-02] MEDS: ARMODAFINIL 150 MG TAB GT SCH (13:00)
[2021-08-02] MEDS: DOPamine 1600MCG/ML D5W 250 ML IV SCH (19:15)
[2021-08-02] MEDS ORDERED: TPN PER PHARMACY IV NR ×8 (20:00)
[2021-08-03] VITALS (102 sets, daily range): BP systolic 93–155; BP diastolic 41–71
[2021-08-03] MEDS: InsuLIN REG 1unit/0.01ml Soln (100units/ml) SC SCH ×4 (00:57→18:07)
[2021-08-03] MEDS: ACCU-CHEK COMFORT CURVE STRIP VI SCH ×4 (00:57→17:41)
[2021-08-03] MEDS: fentaNYL Drip 2500mCg/250mlNS 250 ML IV SCH ×2 (00:58→16:49)
[2021-08-03] MEDS: DOBUTamine 1000MCG/ML 250 ML IV SCH (00:59)
[2021-08-03] MEDS: PROPOFOL 100 ML IV SCH (01:00)
[2021-08-03] MEDS ORDERED: ENOXAPARIN SOD 100 MG/1 ML SYRINGE SC SCH (03:30)
[2021-08-03] MEDS: MIDAZOLAM DRIP 50 mg/50mL 50 ML IV SCH ×3 (06:00→22:52)
[2021-08-03] MEDS: BUDESONIDE (INHALATION) 0.5 MG/2 ML NEB NEB SCH ×2 (06:09→21:05)
[2021-08-03] MEDS: ALBUTEROL SULF 2.5 MG/0.5ML(0.5%) NEB SOLN NEB PRN ×2 (06:09→21:05)
[2021-08-03 06:19] LABS: Basophils # (auto) 0.1 10 ^3/uL (0-0.2); Basophils % (auto) 0.4 % (0.0-2.0); Eosinophils # (auto) 0 10 ^3/uL (0-0.8); Hematocrit 28.5 % (36.0-46.0); Hemoglobin 9.5 g/dL (12.2-16.2); Lymphocytes % (auto) 6.6 % (10.0-50.0); Mean Corpuscular Hemoglobin 32.1 pg (28.0-32.0); Mean Corpuscular Hgb Conc. 33.3 g/dL (32.0-36.0); Mean Corpuscular Volume 96.5 fL (80.0-100.0); Monocytes # (auto) 0.9 10 ^3/uL (0-1.3); Monocytes % (auto) 5.9 % (0.0-12.0); Neutrophils # (auto) 13.7 10 ^3/uL (1.6-8.6); Neutrophils % (auto) 87.1 % (37.0-80.0); Red Blood Cells 2.96 10^6/uL (4.0-5.20); White Blood Cell 15.8 10^3/uL (4.4-10.8)
[2021-08-03] MEDS: METOCLOPRAMIDE HCL 5MG/ml INJ 2ml VIAL IV SCH ×3 (06:29→21:31)
[2021-08-03] MEDS: VASOPRESSIN 50 UNITS in D5W 5% 247.5 ML IV SCH (06:30)
[2021-08-03 06:36] LABS: Albumin 1.4 g/dL (3.4-5.0); Calcium 6.7 mg/dL (8.5-10.1); Magnesium 2.2 mg/dL (1.6-2.6); Potassium 4.1 mmol/L (3.5-5.1)
[2021-08-03 06:41] LABS: BUN/Creatinine Ratio 81.1; Bilirubin, Total 0.4 mg/dL (0.2-1.0); Phosphorus 2.5 mg/dL (2.5-4.90); Total Protein 4.4 g/dL (6.4-8.2)
[2021-08-03] MEDS: NOREPINEPHRINE BITARTRATE 32 MG in SODIUM CHL 0.9% 218 ML IV SCH (06:45)
[2021-08-03] MEDS: ARMODAFINIL 150 MG TAB GT SCH (09:06)
[2021-08-03] MEDS: ZINC SULFATE 220mg CAP or TAB PO SCH (09:41)
[2021-08-03] MEDS: ASCORBIC ACID 1,000 MG TAB PO SCH (09:41)
[2021-08-03] MEDS: SODIUM CHLOR 0.9% PF (SALINE LOCK) 10ML VIAL/SYR IV SCH ×2 (09:41→21:11)
[2021-08-03] MEDS: PANTOPRAZOLE 40 MG/10 ML VIAL INJ IV SCH ×2 (09:41→21:31)
[2021-08-03] MEDS: CHOLECALCIFEROL (VITD3) 2,000 UNIT CAP/TAB PO SCH (09:41)
[2021-08-03] MEDS: DexAMETHasone SOD PHOS 10MG/1ML VIAL INJ IV SCH (09:41)
[2021-08-03] MEDS: MICAFUNGIN SODIUM 100 MG in SODIUM CHL 0.9% 100 ML IV SCH (09:42)
[2021-08-03] MEDS: ENOXAPARIN SOD 60 MG/0.6 ML SYRINGE SC SCH (17:42)
[2021-08-03] MEDS: DOPamine 1600MCG/ML D5W 250 ML IV SCH (18:55)
[2021-08-03] MEDS ORDERED: TPN PER PHARMACY IV NR ×9 (20:00)
[2021-08-04] VITALS (102 sets, daily range): BP systolic 52–132; BP diastolic 20–62
[2021-08-04] MEDS: InsuLIN REG 1unit/0.01ml Soln (100units/ml) SC SCH ×4 (00:30→17:04)
[2021-08-04] MEDS: ACCU-CHEK COMFORT CURVE STRIP VI SCH ×4 (00:30→17:05)
[2021-08-04] MEDS: PROPOFOL 100 ML IV SCH (01:00)
[2021-08-04] MEDS: DOBUTamine 1000MCG/ML 250 ML IV SCH (01:40)
[2021-08-04 05:50] LABS: Basophils # (auto) 0 10 ^3/uL (0-0.2); Basophils % (auto) 0.2 % (0.0-2.0); Eosinophils # (auto) 0 10 ^3/uL (0-0.8); Eosinophils % (auto) 0.2 % (0.0-7.0); Hematocrit 24.1 % (36.0-46.0); Hemoglobin 8.3 g/dL (12.2-16.2); Lymphocytes # (auto) 0.8 10 ^3/uL (0.4-5.4); Lymphocytes % (auto) 6.5 % (10.0-50.0); Mean Corpuscular Hgb Conc. 34.2 g/dL (32.0-36.0); Mean Corpuscular Volume 96.5 fL (80.0-100.0); Monocytes # (auto) 0.8 10 ^3/uL (0-1.3); Monocytes % (auto) 6.6 % (0.0-12.0); Neutrophils # (auto) 10.8 10 ^3/uL (1.6-8.6); Neutrophils % (auto) 86.5 % (37.0-80.0); Nucleated Red Blood Cells % 0.1 %; Red Cell Distribution Width 16.2 % (11.8-14.3); White Blood Cell 12.5 10^3/uL (4.4-10.8)
[2021-08-04 06:03] LABS: Potassium 3.5 mmol/L (3.5-5.1)
[2021-08-04 06:12] LABS: Albumin 1.3 g/dL (3.4-5.0); BUN/Creatinine Ratio 86.2; Bilirubin, Total 0.3 mg/dL (0.2-1.0); Calcium 6.6 mg/dL (8.5-10.1); Magnesium 2.9 mg/dL (1.6-2.6); Phosphorus 2.1 mg/dL (2.5-4.90); Total Protein 4.1 g/dL (6.4-8.2)
[2021-08-04] MEDS: ALBUTEROL SULF 2.5 MG/0.5ML(0.5%) NEB SOLN NEB PRN ×2 (06:26→22:24)
[2021-08-04] MEDS: BUDESONIDE (INHALATION) 0.5 MG/2 ML NEB NEB SCH ×2 (06:26→22:24)
[2021-08-04] MEDS: VASOPRESSIN 50 UNITS in D5W 5% 247.5 ML IV SCH (06:30)
[2021-08-04] MEDS: MIDAZOLAM DRIP 50 mg/50mL 50 ML IV SCH (06:40)
[2021-08-04] MEDS: NOREPINEPHRINE BITARTRATE 32 MG in SODIUM CHL 0.9% 218 ML IV SCH (06:45)
[2021-08-04] MEDS: METOCLOPRAMIDE HCL 5MG/ml INJ 2ml VIAL IV SCH ×3 (06:50→20:58)
[2021-08-04] MEDS: ENOXAPARIN SOD 60 MG/0.6 ML SYRINGE SC SCH ×2 (06:50→18:05)
[2021-08-04] MEDS: ARMODAFINIL 150 MG TAB GT SCH (08:00)
[2021-08-04] MEDS: DexAMETHasone SOD PHOS 10MG/1ML VIAL INJ IV SCH (09:26)
[2021-08-04] MEDS: PANTOPRAZOLE 40 MG/10 ML VIAL INJ IV SCH ×2 (09:32→20:58)
[2021-08-04] MEDS: FUROSEMIDE 40 MG/4 ML VIAL IV SCH (09:32)
[2021-08-04] MEDS: SODIUM CHLOR 0.9% PF (SALINE LOCK) 10ML VIAL/SYR IV SCH ×2 (09:32→20:59)
[2021-08-04] MEDS: CHOLECALCIFEROL (VITD3) 2,000 UNIT CAP/TAB PO SCH (09:32)
[2021-08-04] MEDS: ZINC SULFATE 220mg CAP or TAB PO SCH (09:32)
[2021-08-04] MEDS: ASCORBIC ACID 1,000 MG TAB PO SCH (09:32)
[2021-08-04] MEDS: MICAFUNGIN SODIUM 100 MG in SODIUM CHL 0.9% 100 ML IV SCH (10:26)
[2021-08-04] MEDS: DOPamine 1600MCG/ML D5W 250 ML IV SCH (18:05)
[2021-08-04] MEDS ORDERED: TPN PER PHARMACY IV NR ×8 (20:00)
[2021-08-05] VITALS (96 sets, daily range): BP systolic 84–131; BP diastolic 38–66
[2021-08-05] MEDS: PROPOFOL 100 ML IV SCH (01:00)
[2021-08-05] MEDS: ENOXAPARIN SOD 60 MG/0.6 ML SYRINGE SC SCH ×2 (06:00→17:53)
[2021-08-05] MEDS: ACCU-CHEK COMFORT CURVE STRIP VI SCH ×5 (06:00→23:38)
[2021-08-05] MEDS: METOCLOPRAMIDE HCL 5MG/ml INJ 2ml VIAL IV SCH ×3 (06:00→22:00)
[2021-08-05] MEDS: InsuLIN REG 1unit/0.01ml Soln (100units/ml) SC SCH ×5 (06:00→23:51)
[2021-08-05] MEDS: BUDESONIDE (INHALATION) 0.5 MG/2 ML NEB NEB SCH ×2 (06:09→19:48)
[2021-08-05] MEDS: ALBUTEROL SULF 2.5 MG/0.5ML(0.5%) NEB SOLN NEB PRN ×2 (06:09→19:49)
[2021-08-05] MEDS: VASOPRESSIN 50 UNITS in D5W 5% 247.5 ML IV SCH (06:30)
[2021-08-05] MEDS: DOBUTamine 1000MCG/ML 250 ML IV SCH ×2 (06:55→17:05)
[2021-08-05] MEDS: NOREPINEPHRINE BITARTRATE 32 MG in SODIUM CHL 0.9% 218 ML IV SCH (06:57)
[2021-08-05 07:30] LABS: Basophils # (auto) 0 10 ^3/uL (0-0.2); Basophils % (auto) 0.1 % (0.0-2.0); Eosinophils # (auto) 0.1 10 ^3/uL (0-0.8); Eosinophils % (auto) 0.4 % (0.0-7.0); Hematocrit 27.5 % (36.0-46.0); Hemoglobin 8.9 g/dL (12.2-16.2); Lymphocytes % (auto) 6.3 % (10.0-50.0); Mean Corpuscular Hemoglobin 32.2 pg (28.0-32.0); Mean Corpuscular Hgb Conc. 32.6 g/dL (32.0-36.0); Mean Corpuscular Volume 98.9 fL (80.0-100.0); Monocytes # (auto) 0.8 10 ^3/uL (0-1.3); Monocytes % (auto) 5.3 % (0.0-12.0); Neutrophils # (auto) 13.8 10 ^3/uL (1.6-8.6); Neutrophils % (auto) 87.9 % (37.0-80.0); Red Blood Cells 2.78 10^6/uL (4.0-5.20); Red Cell Distribution Width 16.2 % (11.8-14.3); White Blood Cell 15.7 10^3/uL (4.4-10.8)
[2021-08-05 07:57] LABS: Albumin 1.4 g/dL (3.4-5.0); BUN/Creatinine Ratio 82.8; Bilirubin, Total 0.4 mg/dL (0.2-1.0); Calcium 6.7 mg/dL (8.5-10.1); Magnesium 2.7 mg/dL (1.6-2.6); Phosphorus 2.4 mg/dL (2.5-4.90); Total Protein 4.5 g/dL (6.4-8.2)
[2021-08-05] MEDS: ARMODAFINIL 150 MG TAB GT SCH (08:00)
[2021-08-05 08:23] LABS: Potassium 2.8 mmol/L (3.5-5.1)
[2021-08-05] MEDS ORDERED: POTASSIUM CHL 20MEQ/50ML 50 ML IV ONE ×2 (08:41→08:45)
[2021-08-05] MEDS ORDERED: POTASSIUM EFFERVESENT TAB 25 MEQ GT ONE ×4 (08:45→12:00)
[2021-08-05] MEDS: ZINC SULFATE 220mg CAP or TAB PO SCH (10:00)
[2021-08-05] MEDS: MICAFUNGIN SODIUM 100 MG in SODIUM CHL 0.9% 100 ML IV SCH (10:00)
[2021-08-05] MEDS: CHOLECALCIFEROL (VITD3) 2,000 UNIT CAP/TAB PO SCH (10:00)
[2021-08-05] MEDS: SODIUM CHLOR 0.9% PF (SALINE LOCK) 10ML VIAL/SYR IV SCH ×2 (10:00→22:00)
[2021-08-05] MEDS: FUROSEMIDE 40 MG/4 ML VIAL IV SCH (10:00)
[2021-08-05] MEDS: ASCORBIC ACID 1,000 MG TAB PO SCH (10:00)
[2021-08-05] MEDS: PANTOPRAZOLE 40 MG/10 ML VIAL INJ IV SCH ×2 (10:36→22:00)
[2021-08-05] MEDS: DexAMETHasone SOD PHOS 10MG/1ML VIAL INJ IV SCH (10:36)
[2021-08-05] MEDS: POTASSIUM CHL 20MEQ/50ML 50 ML IV SCH ×4 (12:15→17:54)
[2021-08-05] MEDS ORDERED: fentaNYL Drip 2500mCg/250mlNS 250 ML IV ONE (16:43)
[2021-08-05] MEDS: DOPamine 1600MCG/ML D5W 250 ML IV SCH (17:53)
[2021-08-05] MEDS: TPN PER PHARMACY IV NR ×9 (20:00)
[2021-08-05] MEDS: MIDAZOLAM DRIP 50 mg/50mL 50 ML IV SCH (23:52)
[2021-08-06] VITALS (100 sets, daily range): BP systolic 80–133; BP diastolic 35–63
[2021-08-06] MEDS: PROPOFOL 100 ML IV SCH (01:00)
[2021-08-06 04:51] LABS: Basophils # (auto) 0 10 ^3/uL (0-0.2); Basophils % (auto) 0.3 % (0.0-2.0); Eosinophils # (auto) 0 10 ^3/uL (0-0.8); Eosinophils % (auto) 0.1 % (0.0-7.0); Hematocrit 27.1 % (36.0-46.0); Hemoglobin 8.8 g/dL (12.2-16.2); Lymphocytes # (auto) 0.6 10 ^3/uL (0.4-5.4); Lymphocytes % (auto) 3.9 % (10.0-50.0); Mean Corpuscular Hgb Conc. 32.5 g/dL (32.0-36.0); Mean Corpuscular Volume 98.7 fL (80.0-100.0); Monocytes # (auto) 0.6 10 ^3/uL (0-1.3); Monocytes % (auto) 3.6 % (0.0-12.0); Neutrophils # (auto) 14.2 10 ^3/uL (1.6-8.6); Neutrophils % (auto) 92.1 % (37.0-80.0); Red Blood Cells 2.75 10^6/uL (4.0-5.20); Red Cell Distribution Width 16.6 % (11.8-14.3); White Blood Cell 15.5 10^3/uL (4.4-10.8)
[2021-08-06 05:08] LABS: Albumin 1.4 g/dL (3.4-5.0); Calcium 7.1 mg/dL (8.5-10.1); Magnesium 2.5 mg/dL (1.6-2.6); Potassium 4.9 mmol/L (3.5-5.1)
[2021-08-06] MEDS: fentaNYL Drip 2500mCg/250mlNS 250 ML IV SCH (05:08)
[2021-08-06] MEDS: ACCU-CHEK COMFORT CURVE STRIP VI SCH ×3 (05:10→18:12)
[2021-08-06] MEDS: MIDAZOLAM DRIP 50 mg/50mL 50 ML IV SCH ×2 (05:10→21:02)
[2021-08-06] MEDS: VASOPRESSIN 50 UNITS in D5W 5% 247.5 ML IV SCH (05:10)
[2021-08-06 05:16] LABS: BUN/Creatinine Ratio 92.6; Bilirubin, Total 0.3 mg/dL (0.2-1.0); Pre Albumin 20.7 mg/dL (20.0-40.0); Total Protein 4.6 g/dL (6.4-8.2)
[2021-08-06 05:17] LABS: INR 1.28 (0.9-1.15); Partial Thromboplastin Time 29.8 sec (23.6-33.0)
[2021-08-06] MEDS: ENOXAPARIN SOD 60 MG/0.6 ML SYRINGE SC SCH ×2 (05:29→18:00)
[2021-08-06] MEDS: METOCLOPRAMIDE HCL 5MG/ml INJ 2ml VIAL IV SCH ×3 (05:30→19:45)
[2021-08-06] MEDS: InsuLIN REG 1unit/0.01ml Soln (100units/ml) SC SCH ×3 (05:34→18:12)
[2021-08-06] MEDS: NOREPINEPHRINE BITARTRATE 32 MG in SODIUM CHL 0.9% 218 ML IV SCH (06:45)
[2021-08-06] MEDS: ARMODAFINIL 150 MG TAB GT SCH (08:00)
[2021-08-06] MEDS ORDERED: SODIUM PHOSPHATES 20 MEQ in SODIUM CHL 0.9% 100 ML IV ONE (08:45)
[2021-08-06] MEDS: MICAFUNGIN SODIUM 100 MG in SODIUM CHL 0.9% 100 ML IV SCH (10:00)
[2021-08-06] MEDS: SODIUM CHLOR 0.9% PF (SALINE LOCK) 10ML VIAL/SYR IV SCH ×2 (10:00→19:45)
[2021-08-06] MEDS: PANTOPRAZOLE 40 MG/10 ML VIAL INJ IV SCH ×2 (10:12→19:45)
[2021-08-06] MEDS: ASCORBIC ACID 1,000 MG TAB PO SCH (10:12)
[2021-08-06] MEDS: CHOLECALCIFEROL (VITD3) 2,000 UNIT CAP/TAB PO SCH (10:12)
[2021-08-06] MEDS: ZINC SULFATE 220mg CAP or TAB PO SCH (10:12)
[2021-08-06] MEDS: FUROSEMIDE 40 MG/4 ML VIAL IV SCH (10:13)
[2021-08-06] MEDS: DexAMETHasone SOD PHOS 10MG/1ML VIAL INJ IV SCH (10:13)
[2021-08-06] MEDS: DOBUTamine 1000MCG/ML 250 ML IV SCH (14:55)
[2021-08-06] MEDS: DOPamine 1600MCG/ML D5W 250 ML IV SCH (19:15)
[2021-08-06] MEDS: TPN PER PHARMACY IV NR ×9 (19:41)
[2021-08-06] MEDS ORDERED: TPN PER PHARMACY IV NR ×8 (20:00)
[2021-08-06] MEDS: ALBUMIN 25% 50 ML IV SCH ×2 (20:24→23:00)
[2021-08-06] MEDS: BUDESONIDE (INHALATION) 0.5 MG/2 ML NEB NEB SCH (22:14)
[2021-08-06] MEDS: ALBUTEROL SULF 2.5 MG/0.5ML(0.5%) NEB SOLN NEB PRN (22:15)
[2021-08-07] VITALS (101 sets, daily range): BP systolic 0–146; BP diastolic 38–63
[2021-08-07] MEDS: PROPOFOL 100 ML IV SCH (01:00)
[2021-08-07] MEDS: fentaNYL Drip 2500mCg/250mlNS 250 ML IV SCH ×2 (03:15→15:50)
[2021-08-07] MEDS: DOBUTamine 1000MCG/ML 250 ML IV SCH ×2 (03:22→19:49)
[2021-08-07] MEDS: ALBUMIN 25% 50 ML IV SCH (05:00)
[2021-08-07] MEDS: InsuLIN REG 1unit/0.01ml Soln (100units/ml) SC SCH ×4 (06:00→17:40)
[2021-08-07] MEDS: METOCLOPRAMIDE HCL 5MG/ml INJ 2ml VIAL IV SCH ×3 (06:00→21:07)
[2021-08-07 06:07] LABS: Basophils # (auto) 0 10 ^3/uL (0-0.2); Basophils % (auto) 0.2 % (0.0-2.0); Eosinophils # (auto) 0 10 ^3/uL (0-0.8); Hemoglobin 7.9 g/dL (12.2-16.2); Lymphocytes # (auto) 0.5 10 ^3/uL (0.4-5.4); Mean Corpuscular Hgb Conc. 33.1 g/dL (32.0-36.0); Monocytes # (auto) 0.8 10 ^3/uL (0-1.3); Neutrophils # (auto) 14.1 10 ^3/uL (1.6-8.6)
[2021-08-07 06:10] LABS: Lymphocytes % (auto) 3.3 % (10.0-50.0); Mean Corpuscular Hemoglobin 33.1 pg (28.0-32.0); Monocytes % (auto) 5.2 % (0.0-12.0); Neutrophils % (auto) 91.3 % (37.0-80.0); Red Cell Distribution Width 16.9 % (11.8-14.3); White Blood Cell 15.4 10^3/uL (4.4-10.8)
[2021-08-07] MEDS: ALBUTEROL SULF 2.5 MG/0.5ML(0.5%) NEB SOLN NEB PRN ×2 (06:15→23:36)
[2021-08-07] MEDS: BUDESONIDE (INHALATION) 0.5 MG/2 ML NEB NEB SCH ×2 (06:15→23:36)
[2021-08-07] MEDS: ENOXAPARIN SOD 60 MG/0.6 ML SYRINGE SC SCH ×2 (06:24→17:41)
[2021-08-07] MEDS: ACCU-CHEK COMFORT CURVE STRIP VI SCH ×4 (06:25→17:40)
[2021-08-07] MEDS: VASOPRESSIN 50 UNITS in D5W 5% 247.5 ML IV SCH (06:30)
[2021-08-07 06:33] LABS: Albumin 2.4 g/dL (3.4-5.0); BUN/Creatinine Ratio 110.3; Bilirubin, Total 0.4 mg/dL (0.2-1.0); Calcium 7.2 mg/dL (8.5-10.1); Magnesium 2.6 mg/dL (1.6-2.6); Phosphorus 3.7 mg/dL (2.5-4.90); Total Protein 5.4 g/dL (6.4-8.2)
[2021-08-07] MEDS: NOREPINEPHRINE BITARTRATE 32 MG in SODIUM CHL 0.9% 218 ML IV SCH (06:45)
[2021-08-07] MEDS ORDERED: LIDOCAINE W/ EPINEPHRINE 1% 20ML VIAL ONE (07:02)
[2021-08-07] MEDS: ARMODAFINIL 150 MG TAB GT SCH (08:29)
[2021-08-07] MEDS: DexAMETHasone SOD PHOS 10MG/1ML VIAL INJ IV SCH (10:11)
[2021-08-07] MEDS: FUROSEMIDE 40 MG/4 ML VIAL IV SCH (10:11)
[2021-08-07] MEDS: SODIUM CHLOR 0.9% PF (SALINE LOCK) 10ML VIAL/SYR IV SCH ×2 (10:12→21:07)
[2021-08-07] MEDS: CHOLECALCIFEROL (VITD3) 2,000 UNIT CAP/TAB PO SCH (10:12)
[2021-08-07] MEDS: ASCORBIC ACID 1,000 MG TAB PO SCH (10:12)
[2021-08-07] MEDS: MICAFUNGIN SODIUM 100 MG in SODIUM CHL 0.9% 100 ML IV SCH (10:12)
[2021-08-07] MEDS: ZINC SULFATE 220mg CAP or TAB PO SCH (10:12)
[2021-08-07] MEDS: PANTOPRAZOLE 40 MG/10 ML VIAL INJ IV SCH ×2 (10:12→21:06)
[2021-08-07] MEDS: DOPamine 1600MCG/ML D5W 250 ML IV SCH (19:15)
[2021-08-07] MEDS: MIDAZOLAM DRIP 50 mg/50mL 50 ML IV SCH (19:47)
[2021-08-07] MEDS ORDERED: TPN PER PHARMACY IV NR ×7 (20:00)
[2021-08-08] VITALS (89 sets, daily range): BP systolic 78–139; BP diastolic 36–59
[2021-08-08] MEDS: ACCU-CHEK COMFORT CURVE STRIP VI SCH ×4 (00:21→17:53)
[2021-08-08] MEDS: PROPOFOL 100 ML IV SCH (01:00)
[2021-08-08] MEDS: fentaNYL Drip 2500mCg/250mlNS 250 ML IV SCH (03:38)
[2021-08-08] MEDS: MIDAZOLAM DRIP 50 mg/50mL 50 ML IV SCH ×3 (03:38→22:08)
[2021-08-08 05:34] LABS: Calcium 7.6 mg/dL (8.5-10.1); Potassium 3.7 mmol/L (3.5-5.1)
[2021-08-08 05:39] LABS: Albumin 2.3 g/dL (3.4-5.0); Bilirubin, Total 0.4 mg/dL (0.2-1.0); Magnesium 2.4 mg/dL (1.6-2.6); Phosphorus 2.9 mg/dL (2.5-4.90); Total Protein 5.3 g/dL (6.4-8.2)
[2021-08-08] MEDS: InsuLIN REG 1unit/0.01ml Soln (100units/ml) SC SCH ×4 (06:00→17:52)
[2021-08-08] MEDS: METOCLOPRAMIDE HCL 5MG/ml INJ 2ml VIAL IV SCH ×3 (06:18→22:06)
[2021-08-08] MEDS: ENOXAPARIN SOD 60 MG/0.6 ML SYRINGE SC SCH ×2 (06:18→20:08)
[2021-08-08] MEDS: VASOPRESSIN 50 UNITS in D5W 5% 247.5 ML IV SCH (06:30)
[2021-08-08] MEDS: ALBUTEROL SULF 2.5 MG/0.5ML(0.5%) NEB SOLN NEB PRN (06:38)
[2021-08-08] MEDS: BUDESONIDE (INHALATION) 0.5 MG/2 ML NEB NEB SCH ×2 (06:38→22:16)
[2021-08-08] MEDS: NOREPINEPHRINE BITARTRATE 32 MG in SODIUM CHL 0.9% 218 ML IV SCH ×2 (06:42→22:07)
[2021-08-08] MEDS: ARMODAFINIL 150 MG TAB GT SCH (08:00)
[2021-08-08 09:17] LABS: Hematocrit 24.8 % (36.0-46.0); Hemoglobin 7.9 g/dL (12.2-16.2)
[2021-08-08] MEDS: PANTOPRAZOLE 40 MG/10 ML VIAL INJ IV SCH ×2 (09:35→22:07)
[2021-08-08] MEDS: DexAMETHasone SOD PHOS 10MG/1ML VIAL INJ IV SCH (09:35)
[2021-08-08] MEDS: FUROSEMIDE 40 MG/4 ML VIAL IV SCH (09:35)
[2021-08-08] MEDS: MICAFUNGIN SODIUM 100 MG in SODIUM CHL 0.9% 100 ML IV SCH ×2 (09:36→10:01)
[2021-08-08] MEDS: ASCORBIC ACID 1,000 MG TAB PO SCH (10:00)
[2021-08-08] MEDS: ZINC SULFATE 220mg CAP or TAB PO SCH (10:00)
[2021-08-08] MEDS: SODIUM CHLOR 0.9% PF (SALINE LOCK) 10ML VIAL/SYR IV SCH ×2 (10:00→22:06)
[2021-08-08] MEDS: CHOLECALCIFEROL (VITD3) 2,000 UNIT CAP/TAB PO SCH (10:01)
[2021-08-08] MEDS: DOBUTamine 1000MCG/ML 250 ML IV SCH (14:24)
[2021-08-08] MEDS: DOPamine 1600MCG/ML D5W 250 ML IV SCH (19:15)
[2021-08-08] MEDS ORDERED: TPN PER PHARMACY IV NR ×7 (20:00)
[2021-08-09] VITALS (101 sets, daily range): BP systolic 95–152; BP diastolic 39–60
[2021-08-09] MEDS: PROPOFOL 100 ML IV SCH (01:00)
[2021-08-09] MEDS: fentaNYL Drip 2500mCg/250mlNS 250 ML IV SCH (03:17)
[2021-08-09] MEDS: DOBUTamine 1000MCG/ML 250 ML IV SCH ×2 (05:16→19:40)
[2021-08-09] MEDS: METOCLOPRAMIDE HCL 5MG/ml INJ 2ml VIAL IV SCH ×3 (05:16→21:14)
[2021-08-09] MEDS: MIDAZOLAM DRIP 50 mg/50mL 50 ML IV SCH ×2 (05:26→22:18)
[2021-08-09 05:28] LABS: Potassium 3.7 mmol/L (3.5-5.1)
[2021-08-09 05:36] LABS: Albumin 2.2 g/dL (3.4-5.0); BUN/Creatinine Ratio 106.9; Bilirubin, Total 0.5 mg/dL (0.2-1.0); Calcium 7.6 mg/dL (8.5-10.1); Magnesium 2.3 mg/dL (1.6-2.6); Phosphorus 2.3 mg/dL (2.5-4.90); Total Protein 5.4 g/dL (6.4-8.2)
[2021-08-09] MEDS: InsuLIN REG 1unit/0.01ml Soln (100units/ml) SC SCH ×4 (06:00→17:54)
[2021-08-09] MEDS: ACCU-CHEK COMFORT CURVE STRIP VI SCH ×4 (06:18→17:55)
[2021-08-09] MEDS: ENOXAPARIN SOD 60 MG/0.6 ML SYRINGE SC SCH ×2 (06:18→17:55)
[2021-08-09] MEDS: VASOPRESSIN 50 UNITS in D5W 5% 247.5 ML IV SCH (06:19)
[2021-08-09] MEDS: ALBUTEROL SULF 2.5 MG/0.5ML(0.5%) NEB SOLN NEB PRN ×2 (07:02→22:41)
[2021-08-09] MEDS: BUDESONIDE (INHALATION) 0.5 MG/2 ML NEB NEB SCH ×2 (07:03→22:41)
[2021-08-09] MEDS: ARMODAFINIL 150 MG TAB GT SCH (08:00)
[2021-08-09] MEDS: SODIUM CHLOR 0.9% PF (SALINE LOCK) 10ML VIAL/SYR IV SCH ×2 (10:18→21:15)
[2021-08-09] MEDS: FUROSEMIDE 40 MG/4 ML VIAL IV SCH (10:18)
[2021-08-09] MEDS: ZINC SULFATE 220mg CAP or TAB PO SCH (10:18)
[2021-08-09] MEDS: MICAFUNGIN SODIUM 100 MG in SODIUM CHL 0.9% 100 ML IV SCH (10:18)
[2021-08-09] MEDS: DexAMETHasone SOD PHOS 10MG/1ML VIAL INJ IV SCH (10:18)
[2021-08-09] MEDS: PANTOPRAZOLE 40 MG/10 ML VIAL INJ IV SCH ×2 (10:18→21:14)
[2021-08-09] MEDS: CHOLECALCIFEROL (VITD3) 2,000 UNIT CAP/TAB PO SCH (10:19)
[2021-08-09] MEDS: ASCORBIC ACID 1,000 MG TAB PO SCH (10:19)
[2021-08-09] MEDS: DOPamine 1600MCG/ML D5W 250 ML IV SCH (19:15)
[2021-08-09] MEDS: ACETAMINOPHEN 325 MG TAB PO PRN (19:41)
[2021-08-09] MEDS ORDERED: TPN PER PHARMACY IV NR ×10 (20:00)
[2021-08-10] VITALS (98 sets, daily range): BP systolic 12–145; BP diastolic 32–64
[2021-08-10] MEDS: ACCU-CHEK COMFORT CURVE STRIP VI SCH ×4 (00:36→18:00)
[2021-08-10] MEDS: fentaNYL Drip 2500mCg/250mlNS 250 ML IV SCH ×2 (00:37→12:55)
[2021-08-10] MEDS: PROPOFOL 100 ML IV SCH (00:54)
[2021-08-10 05:42] LABS: Eosinophils # (auto) 0 10 ^3/uL (0-0.8); Eosinophils % (auto) 0.1 % (0.0-7.0); Hemoglobin 7.8 g/dL (12.2-16.2); Lymphocytes # (auto) 0.7 10 ^3/uL (0.4-5.4); Mean Corpuscular Hgb Conc. 32.1 g/dL (32.0-36.0); Monocytes # (auto) 0.7 10 ^3/uL (0-1.3); Neutrophils # (auto) 6.9 10 ^3/uL (1.6-8.6); Nucleated Red Blood Cells % 0.1 %; White Blood Cell 8.4 10^3/uL (4.4-10.8)
[2021-08-10 05:44] LABS: Basophils # (auto) 0 10 ^3/uL (0-0.2); Basophils % (auto) 0.5 % (0.0-2.0); Hematocrit 24.4 % (36.0-46.0); Lymphocytes % (auto) 8.1 % (10.0-50.0); Mean Corpuscular Hemoglobin 32.3 pg (28.0-32.0); Mean Corpuscular Volume 100.6 fL (80.0-100.0); Monocytes % (auto) 8.2 % (0.0-12.0); Neutrophils % (auto) 83.1 % (37.0-80.0); Red Blood Cells 2.42 10^6/uL (4.0-5.20); Red Cell Distribution Width 18.2 % (11.8-14.3)
[2021-08-10] MEDS: METOCLOPRAMIDE HCL 5MG/ml INJ 2ml VIAL IV SCH ×3 (05:45→22:00)
[2021-08-10] MEDS: InsuLIN REG 1unit/0.01ml Soln (100units/ml) SC SCH ×4 (05:46→18:00)
[2021-08-10] MEDS: ENOXAPARIN SOD 60 MG/0.6 ML SYRINGE SC SCH ×2 (05:47→18:00)
[2021-08-10] MEDS: MIDAZOLAM DRIP 50 mg/50mL 50 ML IV SCH ×2 (05:47→12:58)
[2021-08-10] MEDS: NOREPINEPHRINE BITARTRATE 32 MG in SODIUM CHL 0.9% 218 ML IV SCH (05:48)
[2021-08-10] MEDS: VASOPRESSIN 50 UNITS in D5W 5% 247.5 ML IV SCH (05:49)
[2021-08-10 06:06] LABS: BUN/Creatinine Ratio 86.8; Calcium 7.9 mg/dL (8.5-10.1); Potassium 3.4 mmol/L (3.5-5.1)
[2021-08-10 06:09] LABS: Bilirubin, Total 0.6 mg/dL (0.2-1.0); Phosphorus 2.7 mg/dL (2.5-4.90)
[2021-08-10] MEDS: ARMODAFINIL 150 MG TAB GT SCH (08:00)
[2021-08-10] MEDS: CHOLECALCIFEROL (VITD3) 2,000 UNIT CAP/TAB PO SCH (10:00)
[2021-08-10] MEDS: ZINC SULFATE 220mg CAP or TAB PO SCH (10:00)
[2021-08-10] MEDS: PANTOPRAZOLE 40 MG/10 ML VIAL INJ IV SCH ×2 (10:00→22:00)
[2021-08-10] MEDS: DexAMETHasone SOD PHOS 10MG/1ML VIAL INJ IV SCH (10:00)
[2021-08-10] MEDS: MICAFUNGIN SODIUM 100 MG in SODIUM CHL 0.9% 100 ML IV SCH (10:00)
[2021-08-10] MEDS: SODIUM CHLOR 0.9% PF (SALINE LOCK) 10ML VIAL/SYR IV SCH ×2 (10:00→22:00)
[2021-08-10] MEDS: ASCORBIC ACID 1,000 MG TAB PO SCH (10:00)
[2021-08-10] MEDS: FUROSEMIDE 40 MG/4 ML VIAL IV SCH (10:00)
[2021-08-10] MEDS ORDERED: POTASSIUM CHL 20MEQ/50ML 50 ML IV ONE (10:45)
[2021-08-10] MEDS: DOPamine 1600MCG/ML D5W 250 ML IV SCH (19:15)
[2021-08-10] MEDS ORDERED: TPN PER PHARMACY IV NR ×9 (20:00)
[2021-08-10] MEDS: DOBUTamine 1000MCG/ML 250 ML IV SCH (21:00)
[2021-08-10] MEDS: ALBUTEROL SULF 2.5 MG/0.5ML(0.5%) NEB SOLN NEB PRN (22:32)
[2021-08-10] MEDS: BUDESONIDE (INHALATION) 0.5 MG/2 ML NEB NEB SCH (22:32)
[2021-08-11] VITALS (102 sets, daily range): BP systolic 95–142; BP diastolic 37–66
[2021-08-11] MEDS: PROPOFOL 100 ML IV SCH (01:00)
[2021-08-11] MEDS: ALBUTEROL SULF 2.5 MG/0.5ML(0.5%) NEB SOLN NEB PRN ×2 (06:27→22:36)
[2021-08-11] MEDS: BUDESONIDE (INHALATION) 0.5 MG/2 ML NEB NEB SCH ×2 (06:27→22:36)
[2021-08-11] MEDS: METOCLOPRAMIDE HCL 5MG/ml INJ 2ml VIAL IV SCH ×2 (06:30→14:24)
[2021-08-11] MEDS: VASOPRESSIN 50 UNITS in D5W 5% 247.5 ML IV SCH (06:30)
[2021-08-11] MEDS: NOREPINEPHRINE BITARTRATE 32 MG in SODIUM CHL 0.9% 218 ML IV SCH (06:45)
[2021-08-11] MEDS: ENOXAPARIN SOD 60 MG/0.6 ML SYRINGE SC SCH ×2 (06:47→17:11)
[2021-08-11] MEDS: ACCU-CHEK COMFORT CURVE STRIP VI SCH ×4 (06:47→18:17)
[2021-08-11] MEDS: InsuLIN REG 1unit/0.01ml Soln (100units/ml) SC SCH ×4 (06:48→18:18)
[2021-08-11] MEDS: ARMODAFINIL 150 MG TAB GT SCH (08:00)
[2021-08-11 08:04] LABS: Basophils # (auto) 0 10 ^3/uL (0-0.2); Basophils % (auto) 0.3 % (0.0-2.0); Eosinophils # (auto) 0 10 ^3/uL (0-0.8); Eosinophils % (auto) 0.3 % (0.0-7.0); Hematocrit 26.7 % (36.0-46.0); Hemoglobin 8.5 g/dL (12.2-16.2); Lymphocytes # (auto) 0.8 10 ^3/uL (0.4-5.4); Lymphocytes % (auto) 6.8 % (10.0-50.0); Mean Corpuscular Hemoglobin 31.9 pg (28.0-32.0); Mean Corpuscular Volume 99.8 fL (80.0-100.0); Monocytes # (auto) 0.8 10 ^3/uL (0-1.3); Monocytes % (auto) 6.7 % (0.0-12.0); Neutrophils # (auto) 9.7 10 ^3/uL (1.6-8.6); Neutrophils % (auto) 85.9 % (37.0-80.0); Nucleated Red Blood Cells % 0.2 %; Red Blood Cells 2.68 10^6/uL (4.0-5.20); Red Cell Distribution Width 18.5 % (11.8-14.3); White Blood Cell 11.3 10^3/uL (4.4-10.8)
[2021-08-11 08:28] LABS: Albumin 2.1 g/dL (3.4-5.0); Calcium 7.6 mg/dL (8.5-10.1); Magnesium 2.5 mg/dL (1.6-2.6); Potassium 3.9 mmol/L (3.5-5.1)
[2021-08-11 08:32] LABS: BUN/Creatinine Ratio 68.1; Bilirubin, Total 0.7 mg/dL (0.2-1.0); Phosphorus 1.8 mg/dL (2.5-4.90); Total Protein 5.2 g/dL (6.4-8.2)
[2021-08-11] MEDS ORDERED: POTASSIUM PHOSPHATE 26.4 MEQ in SODIUM CHL 0.9% 100 ML IV ONE (09:45)
[2021-08-11] MEDS: SODIUM CHLOR 0.9% PF (SALINE LOCK) 10ML VIAL/SYR IV SCH ×2 (10:00→21:57)
[2021-08-11] MEDS: FUROSEMIDE 40 MG/4 ML VIAL IV SCH (10:00)
[2021-08-11] MEDS: ZINC SULFATE 220mg CAP or TAB PO SCH (10:00)
[2021-08-11] MEDS: CHOLECALCIFEROL (VITD3) 2,000 UNIT CAP/TAB PO SCH (10:00)
[2021-08-11] MEDS: ASCORBIC ACID 1,000 MG TAB PO SCH (10:00)
[2021-08-11] MEDS: MICAFUNGIN SODIUM 100 MG in SODIUM CHL 0.9% 100 ML IV SCH (10:00)
[2021-08-11] MEDS: DexAMETHasone SOD PHOS 10MG/1ML VIAL INJ IV SCH (10:00)
[2021-08-11] MEDS: PANTOPRAZOLE 40 MG/10 ML VIAL INJ IV SCH ×2 (10:00→21:57)
[2021-08-11] MEDS: DOBUTamine 1000MCG/ML 250 ML IV SCH (17:11)
[2021-08-11] MEDS: MIDAZOLAM DRIP 50 mg/50mL 50 ML IV SCH (18:45)
[2021-08-11] MEDS: DOPamine 1600MCG/ML D5W 250 ML IV SCH (18:51)
[2021-08-11] MEDS ORDERED: TPN PER PHARMACY IV NR ×8 (20:00)
[2021-08-11] MEDS ORDERED: METOCLOPRAMIDE HCL 5MG/ml INJ 2ml VIAL IV PRN (22:00)
[2021-08-12] VITALS (104 sets, daily range): BP systolic 90–300; BP diastolic 37–180
[2021-08-12] MEDS: ACCU-CHEK COMFORT CURVE STRIP VI SCH ×4 (00:39→17:33)
[2021-08-12] MEDS: DEXTROSE (50%) 50ML SYRG IV SCH ×3 (00:55→11:17)
[2021-08-12] MEDS: InsuLIN REG 1unit/0.01ml Soln (100units/ml) SC SCH ×4 (00:55→17:33)
[2021-08-12] MEDS: PROPOFOL 100 ML IV SCH (01:00)
[2021-08-12] MEDS: fentaNYL Drip 2500mCg/250mlNS 250 ML IV SCH ×2 (03:23→12:29)
[2021-08-12 04:45] LABS: BUN/Creatinine Ratio 66.7; Calcium 7.5 mg/dL (8.5-10.1); Potassium 4.5 mmol/L (3.5-5.1)
[2021-08-12 04:48] LABS: Bilirubin, Total 0.8 mg/dL (0.2-1.0); Phosphorus 2.5 mg/dL (2.5-4.90); Total Protein 5.2 g/dL (6.4-8.2)
[2021-08-12] MEDS: MIDAZOLAM DRIP 50 mg/50mL 50 ML IV SCH ×5 (05:50→18:59)
[2021-08-12] MEDS: VASOPRESSIN 50 UNITS in D5W 5% 247.5 ML IV SCH (05:52)
[2021-08-12] MEDS: ENOXAPARIN SOD 60 MG/0.6 ML SYRINGE SC SCH ×2 (05:53→17:02)
[2021-08-12] MEDS: ALBUTEROL SULF 2.5 MG/0.5ML(0.5%) NEB SOLN NEB PRN ×2 (06:03→22:39)
[2021-08-12] MEDS: BUDESONIDE (INHALATION) 0.5 MG/2 ML NEB NEB SCH ×2 (06:03→22:39)
[2021-08-12] MEDS: DexAMETHasone SOD PHOS 10MG/1ML VIAL INJ IV SCH (09:48)
[2021-08-12] MEDS: CHOLECALCIFEROL (VITD3) 2,000 UNIT CAP/TAB PO SCH (09:48)
[2021-08-12] MEDS: ZINC SULFATE 220mg CAP or TAB PO SCH (09:48)
[2021-08-12] MEDS: PANTOPRAZOLE 40 MG/10 ML VIAL INJ IV SCH ×2 (09:48→21:38)
[2021-08-12] MEDS: ASCORBIC ACID 1,000 MG TAB PO SCH (09:49)
[2021-08-12] MEDS: FUROSEMIDE 40 MG/4 ML VIAL IV SCH (09:49)
[2021-08-12] MEDS: SODIUM CHLOR 0.9% PF (SALINE LOCK) 10ML VIAL/SYR IV SCH ×2 (09:50→21:39)
[2021-08-12] MEDS: MICAFUNGIN SODIUM 100 MG in SODIUM CHL 0.9% 100 ML IV SCH (11:15)
[2021-08-12] MEDS: DOPamine 1600MCG/ML D5W 250 ML IV SCH ×2 (16:14→19:15)
[2021-08-12] MEDS: NOREPINEPHRINE BITARTRATE 32 MG in SODIUM CHL 0.9% 218 ML IV SCH (16:14)
[2021-08-12] MEDS: DOBUTamine 1000MCG/ML 250 ML IV SCH (17:03)
[2021-08-12] MEDS: LACTULOSE 20Gm/30ML SOLN PO SCH (18:04)
[2021-08-12] MEDS: TPN PER PHARMACY IV NR ×7 (20:00)
[2021-08-13] VITALS (102 sets, daily range): BP systolic 89–161; BP diastolic 37–69
[2021-08-13] MEDS: PROPOFOL 100 ML IV SCH (01:00)
[2021-08-13 04:04] LABS: Basophils # (auto) 0 10 ^3/uL (0-0.2); Basophils % (auto) 0.3 % (0.0-2.0); Eosinophils # (auto) 0 10 ^3/uL (0-0.8); Hemoglobin 8.1 g/dL (12.2-16.2); Mean Corpuscular Volume 98.8 fL (80.0-100.0); Neutrophils # (auto) 12.4 10 ^3/uL (1.6-8.6); Nucleated Red Blood Cells % 0.3 %
[2021-08-13 04:07] LABS: Hematocrit 24.2 % (36.0-46.0); Lymphocytes # (auto) 0.4 10 ^3/uL (0.4-5.4); Lymphocytes % (auto) 3.1 % (10.0-50.0); Mean Corpuscular Hemoglobin 32.9 pg (28.0-32.0); Mean Corpuscular Hgb Conc. 33.3 g/dL (32.0-36.0); Monocytes # (auto) 0.3 10 ^3/uL (0-1.3); Neutrophils % (auto) 94.6 % (37.0-80.0); Red Blood Cells 2.45 10^6/uL (4.0-5.20); Red Cell Distribution Width 18.3 % (11.8-14.3); White Blood Cell 13.1 10^3/uL (4.4-10.8)
[2021-08-13 04:34] LABS: Calcium 7.2 mg/dL (8.5-10.1); Magnesium 1.8 mg/dL (1.6-2.6); Potassium 3.9 mmol/L (3.5-5.1)
[2021-08-13 04:39] LABS: BUN/Creatinine Ratio 65.9; Bilirubin, Total 0.8 mg/dL (0.2-1.0); Phosphorus 3.2 mg/dL (2.5-4.90); Pre Albumin 17.8 mg/dL (20.0-40.0); Total Protein 5.2 g/dL (6.4-8.2)
[2021-08-13] MEDS: ENOXAPARIN SOD 60 MG/0.6 ML SYRINGE SC SCH ×2 (05:18→17:03)
[2021-08-13] MEDS: LACTULOSE 20Gm/30ML SOLN PO SCH ×4 (05:18→17:02)
[2021-08-13] MEDS: ACCU-CHEK COMFORT CURVE STRIP VI SCH ×4 (05:18→18:00)
[2021-08-13] MEDS: InsuLIN REG 1unit/0.01ml Soln (100units/ml) SC SCH ×4 (05:24→18:37)
[2021-08-13] MEDS: VASOPRESSIN 50 UNITS in D5W 5% 247.5 ML IV SCH (05:25)
[2021-08-13] MEDS: ALBUTEROL SULF 2.5 MG/0.5ML(0.5%) NEB SOLN NEB PRN ×2 (06:09→20:48)
[2021-08-13] MEDS: BUDESONIDE (INHALATION) 0.5 MG/2 ML NEB NEB SCH ×2 (06:10→20:48)
[2021-08-13] MEDS: NOREPINEPHRINE BITARTRATE 32 MG in SODIUM CHL 0.9% 218 ML IV SCH (06:45)
[2021-08-13] MEDS: DOBUTamine 1000MCG/ML 250 ML IV SCH (07:44)
[2021-08-13] MEDS: ASCORBIC ACID 1,000 MG TAB PO SCH (09:45)
[2021-08-13] MEDS: FUROSEMIDE 40 MG/4 ML VIAL IV SCH (09:45)
[2021-08-13] MEDS: ZINC SULFATE 220mg CAP or TAB PO SCH (09:45)
[2021-08-13] MEDS: PANTOPRAZOLE 40 MG/10 ML VIAL INJ IV SCH ×2 (09:45→22:00)
[2021-08-13] MEDS: CHOLECALCIFEROL (VITD3) 2,000 UNIT CAP/TAB PO SCH (09:46)
[2021-08-13] MEDS: SODIUM CHLOR 0.9% PF (SALINE LOCK) 10ML VIAL/SYR IV SCH ×2 (09:46→22:00)
[2021-08-13] MEDS: fentaNYL Drip 2500mCg/250mlNS 250 ML IV SCH (12:18)
[2021-08-13] MEDS: MIDAZOLAM DRIP 50 mg/50mL 50 ML IV SCH ×2 (13:51→15:19)
[2021-08-13] MEDS: DOPamine 1600MCG/ML D5W 250 ML IV SCH (19:15)
[2021-08-13] MEDS: TPN PER PHARMACY IV NR ×7 (19:59)
[2021-08-13] MEDS ORDERED: TPN PER PHARMACY IV NR ×8 (20:00)
[2021-08-14] VITALS (100 sets, daily range): BP systolic 76–186; BP diastolic 33–176
[2021-08-14] MEDS: PROPOFOL 100 ML IV SCH (01:00)
[2021-08-14] MEDS: InsuLIN REG 1unit/0.01ml Soln (100units/ml) SC SCH ×4 (04:11→18:00)
[2021-08-14] MEDS: ACCU-CHEK COMFORT CURVE STRIP VI SCH ×4 (04:13→18:00)
[2021-08-14] MEDS: LACTULOSE 20Gm/30ML SOLN PO SCH ×4 (04:14→18:00)
[2021-08-14] MEDS: ENOXAPARIN SOD 60 MG/0.6 ML SYRINGE SC SCH ×2 (04:14→18:01)
[2021-08-14 04:51] LABS: Basophils # (auto) 0.1 10 ^3/uL (0-0.2); Eosinophils # (auto) 0.1 10 ^3/uL (0-0.8); Hemoglobin 8.3 g/dL (12.2-16.2); Mean Corpuscular Hemoglobin 33.1 pg (28.0-32.0); Monocytes # (auto) 0.4 10 ^3/uL (0-1.3); Nucleated Red Blood Cells % 1.3 %; White Blood Cell 13.7 10^3/uL (4.4-10.8)
[2021-08-14 04:54] LABS: Basophils % (auto) 0.7 % (0.0-2.0); Lymphocytes # (auto) 1.1 10 ^3/uL (0.4-5.4); Lymphocytes % (auto) 8.2 % (10.0-50.0); Mean Corpuscular Hgb Conc. 33.2 g/dL (32.0-36.0); Mean Corpuscular Volume 99.9 fL (80.0-100.0); Monocytes % (auto) 3.1 % (0.0-12.0); Neutrophils # (auto) 11.9 10 ^3/uL (1.6-8.6); Red Cell Distribution Width 19.5 % (11.8-14.3)
[2021-08-14] MEDS: VASOPRESSIN 50 UNITS in D5W 5% 247.5 ML IV SCH (05:13)
[2021-08-14] MEDS: NOREPINEPHRINE BITARTRATE 32 MG in SODIUM CHL 0.9% 218 ML IV SCH (05:13)
[2021-08-14 05:22] LABS: Albumin 1.9 g/dL (3.4-5.0); Magnesium 1.7 mg/dL (1.6-2.6); Potassium 3.2 mmol/L (3.5-5.1)
[2021-08-14 05:26] LABS: Bilirubin, Total 0.8 mg/dL (0.2-1.0); Phosphorus 2.9 mg/dL (2.5-4.90)
[2021-08-14] MEDS: DOBUTamine 1000MCG/ML 250 ML IV SCH (06:40)
[2021-08-14] MEDS: SODIUM CHLOR 0.9% PF (SALINE LOCK) 10ML VIAL/SYR IV SCH ×2 (09:23→22:00)
[2021-08-14] MEDS: ZINC SULFATE 220mg CAP or TAB PO SCH (09:23)
[2021-08-14] MEDS: PANTOPRAZOLE 40 MG/10 ML VIAL INJ IV SCH ×2 (09:23→22:00)
[2021-08-14] MEDS: CHOLECALCIFEROL (VITD3) 2,000 UNIT CAP/TAB PO SCH (09:24)
[2021-08-14] MEDS: ASCORBIC ACID 1,000 MG TAB PO SCH (09:24)
[2021-08-14] MEDS: BUDESONIDE (INHALATION) 0.5 MG/2 ML NEB NEB SCH ×2 (10:00→22:15)
[2021-08-14] MEDS: FUROSEMIDE 40 MG/4 ML VIAL IV SCH (10:00)
[2021-08-14] MEDS: ALBUTEROL SULF 2.5 MG/0.5ML(0.5%) NEB SOLN NEB PRN ×2 (11:47→22:14)
[2021-08-14] MEDS ORDERED: POTASSIUM CHL 20MEQ/50ML 50 ML IV ONE (12:30)
[2021-08-14] MEDS ORDERED: POTASSIUM PHOSP 26.4MEQ(18MMOL) IN NS 100 ML IV ONE (15:00)
[2021-08-14] MEDS: DOPamine 1600MCG/ML D5W 250 ML IV SCH (19:15)
[2021-08-14] MEDS ORDERED: TPN PER PHARMACY IV NR ×7 (20:00)
[2021-08-14] MEDS: MIDAZOLAM DRIP 50 mg/50mL 50 ML IV SCH (21:00)
[2021-08-15] VITALS (65 sets, daily range): BP systolic 79–122; BP diastolic 36–64
[2021-08-15] MEDS: PROPOFOL 100 ML IV SCH (01:00)
[2021-08-15] MEDS: DOBUTamine 1000MCG/ML 250 ML IV SCH (03:05)
[2021-08-15] MEDS: fentaNYL Drip 2500mCg/250mlNS 250 ML IV SCH (04:14)
[2021-08-15] MEDS: VASOPRESSIN 50 UNITS in D5W 5% 247.5 ML IV SCH (04:15)
[2021-08-15] MEDS: LACTULOSE 20Gm/30ML SOLN PO SCH ×4 (04:21→14:40)
[2021-08-15 04:40] LABS: Basophils # (auto) 0.1 10 ^3/uL (0-0.2); Eosinophils # (auto) 0.2 10 ^3/uL (0-0.8); Eosinophils % (auto) 1.4 % (0.0-7.0); Hemoglobin 8.9 g/dL (12.2-16.2); Lymphocytes # (auto) 1.5 10 ^3/uL (0.4-5.4); Monocytes # (auto) 0.3 10 ^3/uL (0-1.3)
[2021-08-15 04:42] LABS: Basophils % (auto) 0.5 % (0.0-2.0); Hematocrit 27.6 % (36.0-46.0); Lymphocytes % (auto) 11.5 % (10.0-50.0); Mean Corpuscular Hemoglobin 32.6 pg (28.0-32.0); Mean Corpuscular Hgb Conc. 32.1 g/dL (32.0-36.0); Mean Corpuscular Volume 101.6 fL (80.0-100.0); Monocytes % (auto) 2.4 % (0.0-12.0); Neutrophils % (auto) 84.2 % (37.0-80.0); Nucleated Red Blood Cells % 1.4 %; Red Blood Cells 2.72 10^6/uL (4.0-5.20); Red Cell Distribution Width 19.6 % (11.8-14.3); White Blood Cell 13.1 10^3/uL (4.4-10.8)
[2021-08-15 05:00] LABS: Potassium 3.3 mmol/L (3.5-5.1)
[2021-08-15 05:05] LABS: Albumin 1.8 g/dL (3.4-5.0); BUN/Creatinine Ratio 63.5; Calcium 7.6 mg/dL (8.5-10.1); Magnesium 1.7 mg/dL (1.6-2.6)
[2021-08-15 05:24] LABS: Bilirubin, Total 0.9 mg/dL (0.2-1.0); Phosphorus 3.4 mg/dL (2.5-4.90); Total Protein 4.9 g/dL (6.4-8.2)
[2021-08-15] MEDS: ACCU-CHEK COMFORT CURVE STRIP VI SCH ×3 (06:20→12:00)
[2021-08-15] MEDS: InsuLIN REG 1unit/0.01ml Soln (100units/ml) SC SCH ×3 (06:33→12:00)
[2021-08-15] MEDS: NOREPINEPHRINE BITARTRATE 32 MG in SODIUM CHL 0.9% 218 ML IV SCH (06:45)
[2021-08-15] MEDS: SODIUM CHLOR 0.9% PF (SALINE LOCK) 10ML VIAL/SYR IV SCH (09:07)
[2021-08-15] MEDS: ZINC SULFATE 220mg CAP or TAB PO SCH (09:07)
[2021-08-15] MEDS: PANTOPRAZOLE 40 MG/10 ML VIAL INJ IV SCH (09:07)
[2021-08-15] MEDS: ASCORBIC ACID 1,000 MG TAB PO SCH (09:08)
[2021-08-15] MEDS: CHOLECALCIFEROL (VITD3) 2,000 UNIT CAP/TAB PO SCH (09:09)
[2021-08-15] MEDS: FUROSEMIDE 40 MG/4 ML VIAL IV SCH (09:17)
[2021-08-15] MEDS: POTASSIUM CHL 20MEQ/50ML 50 ML IV SCH ×2 (09:17→11:28)
[2021-08-15] MEDS: ALBUTEROL SULF 2.5 MG/0.5ML(0.5%) NEB SOLN NEB PRN (11:00)
[2021-08-15] MEDS: BUDESONIDE (INHALATION) 0.5 MG/2 ML NEB NEB SCH (13:24)
[2021-08-15] MEDS ORDERED: TPN PER PHARMACY IV NR ×7 (20:00)
== END 2021-08-15 23:38 | DRG 870 ==
LOC: ER 11:38 → EDBD 11:38 → TELE 15:59 → DOU IN ICU 07-22 16:24
PROVIDERS: ADMIT Internal Medicine; ATTEND Internal Medicine
PROC: 06HY33Z Insertion of Infusion Device into Lower Vein, Percutaneous Approach (ICD-10-PCS; principal; 2021-07-13)
PROC: B54BZZA Ultrasonography of Right Lower Extremity Veins, Guidance (ICD-10-PCS; 2021-07-13)
PROC: XW033E5 Introduction of Remdesivir Anti-infective into Peripheral Vein, Percutaneous Approach, New Technology Group 5 (ICD-10-PCS; 2021-07-15)
PROC: 5A0935A Assistance with Respiratory Ventilation, Less than 24 Consecutive Hours, High Flow/Velocity Cannula (ICD-10-PCS; 2021-07-17)
PROC: 5A0935A Assistance with Respiratory Ventilation, Less than 24 Consecutive Hours, High Flow/Velocity Cannula (ICD-10-PCS; 2021-07-18)
PROC: 5A1955Z Respiratory Ventilation, Greater than 96 Consecutive Hours (ICD-10-PCS; 2021-07-23)
PROC: 0BH17EZ Insertion of Endotracheal Airway into Trachea, Via Natural or Artificial Opening (ICD-10-PCS; 2021-07-23)
PROC: 30233R1 Transfusion of Nonautologous Platelets into Peripheral Vein, Percutaneous Approach (ICD-10-PCS; 2021-07-24)
PROC: 30233N1 Transfusion of Nonautologous Red Blood Cells into Peripheral Vein, Percutaneous Approach (ICD-10-PCS; 2021-07-26)
PROC: 04HY32Z Insertion of Monitoring Device into Lower Artery, Percutaneous Approach (ICD-10-PCS; 2021-07-27)
PROC: 02HV33Z Insertion of Infusion Device into Superior Vena Cava, Percutaneous Approach (ICD-10-PCS; 2021-07-27)
PROC: B548ZZA Ultrasonography of Superior Vena Cava, Guidance (ICD-10-PCS; 2021-07-27)
DX: A41.89 Other specified sepsis (principal); U07.1 COVID-19; J12.82 Pneumonia due to coronavirus disease 2019; R65.21 Severe sepsis with septic shock; J96.01 Acute respiratory failure with hypoxia; N17.0 Acute kidney failure with tubular necrosis; E43 Unspecified severe protein-calorie malnutrition; I21.A1 Myocardial infarction type 2; E87.0 Hyperosmolality and hypernatremia; F84.0 Autistic disorder; I50.20 Unspecified systolic (congestive) heart failure; I82.B11 Acute embolism and thrombosis of right subclavian vein; K92.2 Gastrointestinal hemorrhage, unspecified; Z99.11 Dependence on respirator [ventilator] status; N18.9 Chronic kidney disease, unspecified; D69.6 Thrombocytopenia, unspecified; R62.7 Adult failure to thrive; Q90.9 Down syndrome, unspecified; E86.1 Hypovolemia; R73.9 Hyperglycemia, unspecified; F02.80 Dementia in other diseases classified elsewhere, unspecified severity, without behavioral disturbance, psychotic disturbance, mood disturbance, and anxiety; F19.90 Other psychoactive substance use, unspecified, uncomplicated; G30.9 Alzheimer's disease, unspecified; E16.2 Hypoglycemia, unspecified; D64.9 Anemia, unspecified; D69.59 Other secondary thrombocytopenia; E55.9 Vitamin D deficiency, unspecified; Z88.8 Allergy status to other drugs, medicaments and biological substances
CPT/HCPCS: 36415; 36569; 36600; 51702; 70450; 71045; 80053; 80202; 81001; 82040; 82306; 82728; 82805; 82962; 83605; 83615; 83735; 83880; 84100; 84132; 84478; 84484; 85007; 85014; 85018; 85025; 85027; 85045; 85362; 85384; 85610; 85730; 86141; 86850; 86880; 86900; 86901; 86920; 87040; 87070; 87077; 87081; 87186; 87205; 87426; 93005; 93306; 93971; 94003; 94640; 96361; 96374; C9113; G0378; J0330; J1100; J1815; J2248; J2250; J2405; J2543; J2704; J3490; J7060; J7131